=== PATIENT | female | born 1960 | race Hispanic/Latino ===

== ENCOUNTER 2019-03-07 14:41 | Emergency (ER) | payer SELFPAY ==
[~2019-03-07] VITALS: Ht 160 cm; Wt 89.8 kg
[2019-03-07] MEDS ORDERED: SODIUM CHLORIDE 0.9% 1000ML 1,000 ML IV SCH ×2 (14:45→16:30)
--- OUTSIDE RECORDS SUMMARY | 2019-03-07 14:46 | XMS REPORT | Clinical Summary ---
Author Author [facility] Organization [facility] Address Unknown Phone Unavailable Care Team Providers Care Scoop Filler Name Role Phone Fili Andre MD PCP Allergies Comments Active Allergy Reactions Severity Noted Date Aspirin Palpitations 03/04/2012 Medications End Date Status Medication Sig Dispensed Refills Start Date Active blood glucose Use as 1 Kit 0 meterIndications: Type 2 directed.. 7 diabetes mellitus with complication, with long-term current use of insulin Active blood glucose test check blood 100 Each 3 stripsIndications: Type 2 sugar 3 times 7 diabetes mellitus with daily. complication, with long-term current use of insulin Active lancets 28 cgeck blood 100 Each 3 gaugeIndications: Type 2 sugar 3 times 7 diabetes mellitus with daily. complication, with long-term current use of insulin Active INSULIN SYRINGE 1mL Use to inject 200 Each 6 30GX5/16" medication 2 8 syringe-needleIndications times daily. : Inadequately controlled Use a new diabetes mellitus syringe each time. Active insulin REGULAR 100 Twice daily 30 mL 3 unit/mL under skin 8 injectionIndications: if sugars Inadequately controlled 201-250 - diabetes mellitus Inject 4 units ; if sugars 251-300 - Inject 6 unit; if sugars 301-350 - Inject 8 units; If sugars 351-400 - inject 10 units. Active amitriptyline (ELAVIL) 25 Take 3 270 tablet 1 05/19/201 mg tabletIndications: tablets by 8 Recurrent major mouth nightly depressive disorder, in at bedtime as full remission needed for Sleep. Active DULoxetine (CYMBALTA) 60 Take 1 90 capsule 1 05/19/201 mg delayed release capsule by 8 capsuleIndications: mouth daily. Recurrent major depressive disorder, in full remission, Generalized anxiety disorder Active insulin NPH 100 unit/mL Inject 75 140 mL 1 injectionIndications: Units under 8 Inadequately controlled the skin 2 diabetes mellitus times daily (before meals). Active metFORMIN (GLUCOPHAGE) Take 1 tablet 180 tablet 1 1,000 mg by mouth 2 8 tabletIndications: Type times daily II or unspecified type (with meals). diabetes mellitus with neurological manifestations, not stated as uncontrolled(250.60) Active lisinopril (PRINIVIL) 10 Take 1 tablet 90 tablet 1 mg tablet by mouth 8 daily. Active metoprolol succinate Take 1 tablet 90 tablet 1 (TOPROL XL) 25 mg by mouth 9 extended release daily. tabletIndications: Essential hypertension Active gabapentin (NEURONTIN) Take 1 tablet 180 tablet 1 600 mg tabletIndications: by mouth 2 9 Diabetic polyneuropathy times daily. associated with diabetes mellitus due to underlying condition Active omeprazole (PRILOSEC) 20 Take 1 90 capsule 1 mg delayed release capsule by 9 capsuleIndications: mouth daily. Gastroesophageal reflux disease, esophagitis presence not specified Active benzonatate (TESSALON Take 1-2 30 capsule 0 PERLES) 100 mg capsules by 9 capsuleIndications: Viral mouth every 8 URI with cough hours as needed for cough. Active loratadine (CLARITIN) 10 Take 1 tablet 30 tablet 0 mg tabletIndications: by mouth 9 Viral URI with cough, daily. Nasal congestion Active fluticasone propionate Use 2 Sprays 16 g 0 (FLONASE ALLERGY RELIEF) in each 9 50 mcg/actuation nasal nostril sprayIndications: Viral daily. URI with cough, Nasal congestion 11/24/2017 Discontinued INSULIN SYRINGE 0.5mL Use to inject 200 Each 3 30GX5/16" (ULTRA COMFORT) medication 2 7 syringe-needleIndications times daily. : Type 2 diabetes Use a new mellitus with syringe each complication, with time. long-term current use of insulin 07/22/2018 Discontinued nystatin (MYCOSTATIN) Apply to 30 g 3 100,000 unit/gram affected area 7 ointment 2 times daily. 11/24/2017 Discontinued insulin 70/30 NPH - Inject 40 60 mL 3 REGULAR (HUMULIN 70/30, Units under 7 NOVOLIN 70/30) 100 the skin 2 unit/mL injection times daily (with meals). 03/20/2018 Discontinued gabapentin (NEURONTIN) Take 1 tablet 180 tablet 1 600 mg tabletIndications: by mouth 2 7 Diabetic polyneuropathy times daily. associated with diabetes mellitus due to underlying condition 11/24/2017 Discontinued lisinopril (PRINIVIL, Take 1 tablet 90 tablet 1 ZESTRIL) 20 mg by mouth 7 tabletIndications: daily. Essential hypertension 11/24/2017 Discontinued metoprolol succinate Take 2 180 tablet 1 (TOPROL XL) 50 mg tablets by 7 extended release mouth daily. tabletIndications: Essential hypertension 03/13/2018 Discontinued omeprazole (PRILOSEC) 20 Take 1 90 capsule 1 mg delayed release capsule by 7 capsuleIndications: mouth daily. Gastroesophageal reflux disease, esophagitis presence not specified 11/24/2017 Discontinued nitrofurantoin Take 1 20 capsule 0 (MACRODANTIN) 100 mg capsule 7 capsuleIndications: before Medication refill intercourse and 1 capsule after interocourse. 11/24/2017 Discontinued glyBURIDE micronized Take 2 180 tablet 1 (GLYNASE) 3 mg tablets by 8 tabletIndications: mouth daily Uncontrolled type 2 (with diabetes mellitus without breakfast). complication, with long-term current use of insulin 02/24/2018 Discontinued amitriptyline (ELAVIL) 25 Take 3 270 tablet 0 mg tabletIndications: tablets by 8 Recurrent major mouth nightly depressive disorder, in at bedtime as full remission needed for Sleep. 01/17/2018 Discontinued DULoxetine (CYMBALTA) 60 Take 1 90 capsule 0 mg delayed release capsule by 8 capsuleIndications: mouth daily. Recurrent major depressive disorder, in full remission, Generalized anxiety disorder 02/24/2018 Discontinued hydrOXYzine (ATARAX) 25 Take 1 tablet 90 tablet 0 mg tabletIndications: by mouth 8 Generalized anxiety daily as disorder needed for Anxiety. 01/02/2018 conjugated estrogens Insert 0.5 g 30 g 1 (PREMARIN) 0.625 mg/gram vaginally 3 8 vaginal creamIndications: times weekly Recurrent UTI for 30 days. 01/17/2018 Discontinued metFORMIN (GLUCOPHAGE) Take 1 tablet 180 tablet 0 1,000 mg by mouth 2 8 tabletIndications: Type times daily II or unspecified type (with meals). diabetes mellitus with neurological manifestations, not stated as uncontrolled(250.60) 01/17/2018 Discontinued lisinopril (PRINIVIL, Take 0.5 90 tablet 1 ZESTRIL) 20 mg tablets by 8 tabletIndications: mouth daily. Essential hypertension 02/25/2018 Discontinued metoprolol succinate Take 1 tablet 180 tablet 1 (TOPROL XL) 50 mg by mouth 8 extended release daily. tabletIndications: Essential hypertension 01/17/2018 Discontinued insulin NPH (NOVOLIN N, Inject 55 100 mL 3 HUMULIN N) 100 unit/mL Units under 8 injectionIndications: the skin 2 Inadequately controlled times daily diabetes mellitus (before meals). 03/16/2018 Discontinued insulin NPH 100 unit/mL Inject 65 120 mL 1 injectionIndications: Units under 8 Inadequately controlled the skin 2 diabetes mellitus times daily (before meals). 06/15/2018 Discontinued metFORMIN (GLUCOPHAGE) Take 1 tablet 180 tablet 1 1,000 mg by mouth 2 8 tabletIndications: Type times daily II or unspecified type (with meals). diabetes mellitus with neurological manifestations, not stated as uncontrolled(250.60) 06/15/2018 Discontinued lisinopril (PRINIVIL) 10 Take 1 tablet 90 tablet 1 mg tablet by mouth 8 daily. 02/24/2018 Discontinued DULoxetine (CYMBALTA) 60 Take 1 90 capsule 0 mg delayed release capsule by 8 capsuleIndications: mouth daily. Recurrent major depressive disorder, in full remission, Generalized anxiety disorder 02/22/2018 nitrofurantoin Take 1 28 capsule 0 (MACRODANTIN) 100 mg capsule by 8 capsuleIndications: mouth 4 times Urinary tract infection daily for 7 without hematuria, site days. unspecified 05/19/2018 Discontinued amitriptyline (ELAVIL) 25 Take 3 270 tablet 0 mg tabletIndications: tablets by 8 Recurrent major mouth nightly depressive disorder, in at bedtime as full remission needed for Sleep. 05/19/2018 Discontinued DULoxetine (CYMBALTA) 60 Take 1 90 capsule 0 mg delayed release capsule by 8 capsuleIndications: mouth daily. Recurrent major depressive disorder, in full remission, Generalized anxiety disorder 08/04/2018 Discontinued metoprolol succinate Take 1 tablet 90 tablet 1 (TOPROL XL) 25 mg by mouth 8 extended release daily. tabletIndications: Essential hypertension 10/04/2018 Discontinued omeprazole (PRILOSEC) 20 Take 1 90 capsule 1 mg delayed release capsule by 8 capsuleIndications: mouth daily. Gastroesophageal reflux disease, esophagitis presence not specified 06/15/2018 Discontinued insulin NPH 100 unit/mL Inject 70 130 mL 1 injectionIndications: Units under 8 Inadequately controlled the skin 2 diabetes mellitus times daily (before meals). 08/04/2018 Discontinued gabapentin (NEURONTIN) Take 1 tablet 180 tablet 1 600 mg tabletIndications: by mouth 2 8 Diabetic polyneuropathy times daily. associated with diabetes mellitus due to underlying condition 04/07/2018 mupirocin (BACTROBAN) 2 % Apply to 22 g 0 ointmentIndications: Open affected area 8 wound 3 times daily for 7 days. 10/04/2018 Discontinued linagliptin (TRADJENTA) 5 Take 1 tablet 30 tablet 1 mg tablet by mouth 9 daily. 10/17/2018 nitrofurantoin Take 1 40 capsule 0 (MACRODANTIN) 100 mg capsule by 9 capsuleIndications: Acute mouth 4 times UTI (urinary tract daily for 10 infection) days. Active Problems Problem Noted Date Inadequately controlled diabetes mellitus 02/14/2018 History of pancreatitis - see records from OSH in media in 12/201605/20/2017 Bilateral renal cysts 04/06/2017 Type II or unspecified type diabetes mellitus without mention of 01/06/2013 complication, not stated as uncontrolled Diabetic polyneuropathy 11/28/2012 Calcaneal spur 10/03/2012 Other and unspecified hyperlipidemia 10/03/2012 GERD (gastroesophageal reflux disease) 10/03/2012 Gingivitis 08/12/2012 Major depression 05/27/2012 Generalized anxiety disorder 05/27/2012 Diabetic neuropathy 04/29/2012 HTN (hypertension) 03/04/2012 Ventral hernia Encounters Care Team Description Date Type Specialty 11/24/2018 Travel 11/02/2018 Travel Carmelita Dasilva NP Viral URI with cough (Primary Dx); Nasal congestion 10/31/2018 Same Day Family Practice 10/31/2018 Travel Ai Austin PA Acute UTI (urinary tract infection) (Primary Dx); Dysuria; DM (diabetes mellitus), secondary 10/07/2018 Office Visit Family Practice Fili Andre MD Cantieri, Tara Lynn, RPH Inadequately controlled diabetes mellitus (Primary Dx); Hyperlipidemia, unspecified hyperlipidemia type 10/04/2018 Office Visit Clinical Pharmacy Fili Andre MD Gastroesophageal reflux disease, esophagitis presence not specified 10/04/2018 Refill [facility] Lindsey Malik DPM Diabetes mellitus type 2 with neurological manifestations (Primary Dx); Closed displaced fracture of second metatarsal bone of left foot with delayed healing, subsequent encounter; Hallux valgus, left 09/30/2018 Office Visit Podiatry Fili Andre MD Closed displaced fracture of second metatarsal bone of left foot with delayed healing, subsequent encounter 09/30/2018 Ancillary Radiology Procedure 09/30/2018 Travel Fili Andre MD Hearing problem, unspecified laterality (Primary Dx) 09/14/2018 Orders Only [facility] Verónica Ordaz RN Information Only 09/14/2018 Telephone [facility] Dilip Godoy MD Left foot pain 09/06/2018 Orders Only Orthopedics Fili Andre MD Left foot pain 09/05/2018 Hospital Radiology Encounter Sotero Larsen MD Mascarenhas, Randhir F, MD Hallux valgus, left (Primary Dx); Left foot pain 09/05/2018 Office Visit Orthopedics 09/05/2018 Travel Lindsey Malik DPM Diabetes mellitus type 2 with neurological manifestations (Primary Dx); Closed displaced fracture of second metatarsal bone of left foot with delayed healing, subsequent encounter; Hallux valgus, left 08/05/2018 Office Visit Podiatry Lindsey Malik DPM 08/04/2018 Ancillary Radiology Procedure Lurdes Edward RPH Inadequately controlled diabetes mellitus (Primary Dx); Essential hypertension; Diabetic polyneuropathy associated with diabetes mellitus due to underlying condition 08/04/2018 Office Visit Clinical Pharmacy Fili Andre MD Results 08/04/2018 Telephone [facility] Fili Andre MD Follow up (Primary Dx) 08/04/2018 Orders Only [facility] 08/04/2018 Travel Fili Andre MD Results 08/03/2018 Telephone [facility] Fili Andre MD Results 07/24/2018 Telephone [facility] Fili Andre MD Hernia of abdominal wall (Primary Dx); Influenza vaccination declined by patient; Type 2 diabetes mellitus without complication, with long-term current use of insulin; Left foot pain; Fatty liver; Physical exam, annual 07/22/2018 Office Visit [facility] 07/20/2018 Travel Lurdes Edward RPH Inadequately controlled diabetes mellitus; Type II or unspecified type diabetes mellitus with neurological manifestations, not stated as uncontrolled(250.60) 06/15/2018 Office Visit Clinical Pharmacy Lindsey Malik DPM 06/10/2018 Ancillary Radiology Procedure Lindsey Malik DPM Closed displaced fracture of second metatarsal bone of left foot, initial encounter (Primary Dx); Diabetes mellitus type 2 with neurological manifestations; Hallux valgus, left 06/10/2018 Office Visit Podiatry Boo Schroeder MD Recurrent major depressive disorder, in full remission; Generalized anxiety disorder 05/19/2018 Office Visit Psychiatry Lurdes Edward RPH Inadequately controlled diabetes mellitus (Primary Dx) 05/11/2018 Office Visit Clinical Pharmacy Fili Andre MD Pcp Communication (response to email ) 05/09/2018 Telephone [facility] Fili Andre MD 04/25/2018 Hospital Cardiology Encounter 04/01/2018 Ancillary Radiology Procedure Fili Andre MD 03/31/2018 Ancillary Radiology Procedure Fili Andre MD Palpitation (Primary Dx); Callus; Open wound; Bunion; Left foot pain 03/24/2018 Office Visit Family Practice Fili Andre MD Diabetic polyneuropathy associated with diabetes mellitus due to underlying condition 03/20/2018 Refill [facility] Lurdes Edward RPH Inadequately controlled diabetes mellitus 03/16/2018 Office Visit Clinical Pharmacy Fili Andre MD Gastroesophageal reflux disease, esophagitis presence not specified 03/13/2018 Refill [facility] Lurdes Edward RPH Inadequately controlled diabetes mellitus 03/08/2018 Orders Only Clinical Pharmacy Fili Andre MD Type 2 diabetes mellitus without complication, with long-term current use of insulin (Primary Dx); Essential hypertension; Elevated LFTs 02/25/2018 Office Visit Family Practice Fili Andre MD Livingston, Robin K, MD Recurrent major depressive disorder, in full remission (Primary Dx); Generalized anxiety disorder 02/24/2018 Office Visit Psychiatry Carmelita Dasilva, GENE Urinary tract infection without hematuria, site unspecified (Primary Dx); Dysuria 02/15/2018 Same Day Family Practice Lurdes Edward [facility] GiselPaz Inadequately controlled diabetes mellitus (Primary Dx) 02/14/2018 Office Visit Clinical Pharmacy Lurdes Edward [facility] Inadequately controlled diabetes mellitus; Type II or unspecified type diabetes mellitus with neurological manifestations, not stated as uncontrolled(250.60) 01/17/2018 Office Visit Clinical Pharmacy Boo Schroeder MD Recurrent major depressive disorder, in full remission; Generalized anxiety disorder 01/17/2018 Refill Psychiatry Silvana Crain Diabetes; Pre-clinic Chart Review 11/26/2017 Telephone Social Work Benoit Gamez MD Inadequately controlled diabetes mellitus (Primary Dx); Elevated LFTs; Fatty liver; Low blood pressure reading; Essential hypertension; Alopecia 11/24/2017 Office Visit Family Practice Benoit Gamez MD Inadequately controlled diabetes mellitus 11/24/2017 Orders Only Family Practice Anirudh Navarrete RN 11/24/2017 Patient Patient Education Education after 11/23/2017 Immunizations Name Dates Previously Given Next Due Herpes Zoster Vaccine In 05/06/2017 Clinic Influenza Vaccine, 09/16/2017 (Deferred: Patient Refused) Seasonal, Injectable Influenza, 07/22/2018 (Deferred: Patient Refused) Vaccine<FLUCELVAX>(Multi- Dose) Pneumoccoccal 03/04/2012 Pneumococcal 13-valent 09/03/2016 conj 0.5 mL injection Tdap Tetanus, diphtheria, 03/04/2012 acellular pertussis Vaccine Triamcinolone 40mg/ml Inj 04/03/2013 Family History Medical History Relation Name Comments Asthma Brother Psychiatry Brother Heart Father Arthritis Mother Diabetes Mother Hypertension Mother Cancer Sister Thyroid Diabetes Sister Hypertension Sister Stroke Sister Relation Name Status Comments Brother Alive Brother Brother Father Alive Maternal Grandfather Maternal Grandmother Mother Paternal Grandfather Paternal Grandmother Sister Alive Sister Sister Sister Sister Social History Date Tobacco Use Types Packs/Day Years Used Never Smoker Smokeless Tobacco: Never Used Tobacco Cessation: Counseling Given: No Alcohol Use Drinks/Week oz/Week Comments No Sex Assigned at Date Recorded Not on file Industry Job Start Date Occupation Not on file Not on file Not on file Travel End Travel History Travel Start No recent travel history available. Last Filed Vital Signs Time Taken Vital Sign Reading 10/31/2018 8:38 AM CDT Blood Pressure 103/47 10/31/2018 8:38 AM CDT Pulse 87 10/31/2018 8:38 AM CDT Temperature 36.8 C (98.3 F) 10/31/2018 8:38 AM CDT Respiratory Rate 18 10/31/2018 8:38 AM CDT Oxygen Saturation 99% - Inhaled Oxygen - Concentration 10/31/2018 8:38 AM CDT Weight 88 kg (194 lb) 10/31/2018 8:38 AM CDT Height 162.6 cm (5' 4") 10/31/2018 8:38 AM CDT Body Mass Index 33.3 Plan of Treatment Care Team Description Date Type Specialty Lurdes Edward, [facility] [address] [place] [address] [phone] Arrived 11/24/2018 Office Visit Clinical Pharmacy Boo Schroeder MD [address] [facility] [id number] [place] [address] [phone] 12/22/2018 Office Visit Psychiatry Health Maintenance Due Date Last Done Comments DM Retinal Exam (Yearly) 10/20/2018 10/20/2017, 10/21/2016, 12/22/2012 Breast Cancer Scrn 11/15/2018 11/15/2017, 10/20/2016, 04/29/2012 (Yearly) Colorectal Cancer Scrn 03/16/2019 03/16/2018, 09/29/2016 Annual (FIT/FOBT) Age 50 to 75 IMM Influenza Seasonal 04/25/2019 03/31/2012 (Declined) Apr to September (>/=19 yrs) Cervical Cancer Scrn (3 10/01/2019 09/30/2016, 05/26/2012 (Previously Yrs) completed - External) DM Foot Exam (Yearly) 10/08/2019 10/07/2018, 06/10/2018, 11/01/2017, Additional history exists DM HGBA1C (Yearly) 11/05/2019 11/04/2018, 07/22/2018, 06/10/2018, Additional history exists Goals Goal Patient Associated Recent Progress Patient-Stat Author Goal Type Problems ed? LOWER BLOOD GLUCOSE Lifestyle No Reinaldo Love Increase Physical Activity Lifestyle No Anirudh Navarrete RN Weight (lb) < 200 lb (90.7 kg) Weight 88 kg (194 lb) No Carine Ohara (10/31/2018 8:38 AM J CDT) Procedures Comments Procedure Name Priority Date/Time Associated Diagnosis LIPID PROFILE Routine 11/04/2018 Hyperlipidemia, 8:47 AM CDT unspecified hyperlipidemia type COMPREHENSIVE METABOLIC Routine 11/04/2018 Inadequately controlled PANEL(DBIL NOT INCLUDED) 8:47 AM CDT diabetes mellitus HEMOGLOBIN A1C Routine 11/04/2018 Inadequately controlled 8:47 AM CDT diabetes mellitus DIABETIC FOOT EXAM Routine 10/07/2018 DM (diabetes mellitus), 10:47 AM CDT secondary URINE CULTURE Routine 10/07/2018 Dysuria 10:21 AM CDT POC URINE DIPSTICK, Routine 10/07/2018 Dysuria WITHOUT MICRO XRAY FOOT 3 VIEWS MIN Routine 09/30/2018 Closed displaced fracture 8:10 AM COMMUNITY SERVICE REPRESENTATIVE of second metatarsal bone of left foot with delayed healing, subsequent encounter XRAY FOOT 3 VIEWS MIN Routine 09/05/2018 Left foot pain 8:35 AM COMMUNITY SERVICE REPRESENTATIVE XRAY FOOT 3 VIEWS MIN Routine 08/04/2018 Follow up 8:46 AM COMMUNITY SERVICE REPRESENTATIVE LIVER PROFILE Routine 08/04/2018 Elevated LFTs 8:05 AM COMMUNITY SERVICE REPRESENTATIVE HEPATITIS PANEL Routine 08/04/2018 Elevated LFTs 8:05 AM COMMUNITY SERVICE REPRESENTATIVE COMPREHENSIVE METABOLIC Routine 07/22/2018 Fatty liver PANEL(DBIL NOT INCLUDED) 3:40 PM COMMUNITY SERVICE REPRESENTATIVE VIT D, 25-HYDROXY Routine 07/22/2018 Left foot pain 3:40 PM COMMUNITY SERVICE REPRESENTATIVE HEMOGLOBIN A1C Routine 07/22/2018 Type 2 diabetes mellitus 3:40 PM COMMUNITY SERVICE REPRESENTATIVE without complication, with long-term current use of insulin XRAY FOOT 3 VIEWS MIN STAT 06/10/2018 Closed displaced fracture 11:04 AM COMMUNITY SERVICE REPRESENTATIVE of second metatarsal bone of left foot, initial encounter DIABETIC FOOT EXAM Routine 06/10/2018 Diabetes mellitus type 2 10:18 AM COMMUNITY SERVICE REPRESENTATIVE with neurological manifestations HEMOGLOBIN A1C Routine 06/10/2018 Inadequately controlled 10:02 AM COMMUNITY SERVICE REPRESENTATIVE diabetes mellitus 24 HOUR HOLTER MONITOR Routine 04/25/2018 Palpitation 10:01 AM CDT U/S ABDOMEN Routine 04/01/2018 Elevated LFTs 8:05 AM CDT XRAY FOOT 3 VIEWS MIN Routine 03/31/2018 Callus 8:21 AM CDT Open wound Bunion Left foot pain FREE T4 Routine 03/31/2018 Palpitation 8:13 AM CDT TSH Routine 03/31/2018 Palpitation 8:13 AM CDT 12 LEAD EKG Routine 03/24/2018 Palpitation 3:54 PM CDT OCCULT BLOOD ICT Routine 03/16/2018 Essential hypertension 11:56 AM CDT Type 2 diabetes mellitus without complication, with long-term current use of insulin Elevated LFTs HEMOGLOBIN A1C Routine 03/08/2018 Inadequately controlled 3:48 PM CDT diabetes mellitus COMPREHENSIVE METABOLIC Routine 03/08/2018 Inadequately controlled PANEL(DBIL NOT INCLUDED) 3:48 PM CDT diabetes mellitus MICROALBUM, URINE Routine 03/08/2018 Inadequately controlled 3:44 PM CDT diabetes mellitus URINE CULTURE Routine 02/15/2018 Urinary tract infection 5:23 PM CDT without hematuria, site unspecified POC URINE DIPSTICK, Routine 02/15/2018 Dysuria WITHOUT MICRO 4:50 PM CDT FERRITIN Routine 11/24/2017 Alopecia 11:42 AM CDT CBC/DIFF Routine 11/24/2017 Alopecia 11:42 AM CDT TSH Routine 11/24/2017 Alopecia 11:42 AM CDT after 11/23/2017 Results * HEMOGLOBIN A1C (11/04/2018 8:47 AM CDT) Only the most recent of 4 results within the time period is included. Hemoglobin A1c 8.3 (H) 4.3 - 6.1 % [facility] IMMUNOLOGY Est Average 191.5 mg/dL [facility] Gluc IMMUNOLOGY Specimen Blood Performing Organization Address City/State/Zipcode Phone Number [facility]MMUNOLOG[facility] * COMPREHENSIVE METABOLIC PANEL(DBIL NOT INCLUDED) (11/04/2018 8:47 AM CDT) Only the most recent of 3 results within the time period is included. Albumin 3.9 3.7 - 5.3 g/dL [facility] Calcium 9.5 8.6 - 10.3 mg/dL [facility] CO2 30 21 - 31 mmol/L [facility] 1 Chloride 99 98 - 107 mmol/L [facility] 1 Creatinine 0.70 0.6 - 1.2 mg/dL [facility] 1 Glucose 82 70 - 110 mg/dL [facility] 1 Alk Phos 68 34 - 104 U/L [facility] 1 Potassium 4.5 3.5 - 5.1 mmol/L [facility] 1 Sodium 138 136 - 145 mmol/L [facility] 1 ALT 49 7 - 52 U/L [facility] 1 AST 47 (H) 13 - 39 U/L [facility] 1 Urea Nitrogen 12 7 - 25 mg/dL [facility] 1 T Bilirubin 0.3 0.2 - 1.2 mg/dL [facility] 1 T Protein 7.2 6.0 - 8.3 g/dL [facility] 1 GFR, Estimated >60 mL/min/1.73 m2 [facility] 1 GFR, Estim, >60 mL/min/1.73 m2 [facility] Afr-Am 1 Anion Gap 9 [facility] 1 Specimen Blood Performing Organization Address [facility] [place] [facility] Phone Number [facility] * LIPID PROFILE (11/04/2018 8:47 AM CDT) Cholesterol 186 mg/dL [facility] Comment: 1 REFERENCE RANGE: Desirable: <200 mg/dL Borderline: 200-240 mg/dL High Risk: >240 mg/dL Triglyceride 135 <150 mg/dL [facility] Comment: 1 REFERENCE RANGE: Normal: <150 mg/dL Borderline High: 150-199 mg/dL High: 200-499 mg/dL Very High: >ga=596 mg/dL HDL 44 mg/dL [facility] Comment: 1 Increased CHD risk: <40 mg/dL Decreased CHD risk: >60 mg/dL LDL 115 mg/dL [facility] Comment: 1 REFERENCE RANGE: Optimal: <100 mg/dL Near Optimal: 100-129 mg/dL Borderline High: 130-159 mg/dL High: 160-189 mg/dL Very High: >kf=998 mg/dL Specimen Blood Performing Organization Address [facility] [place] Phone Number [facility] * DIABETIC FOOT EXAM (10/07/2018 10:47 AM CDT) Only the most recent of 2 results within the time period is included. Narrative Performed At [facility] 10/07/2018 10:55 AM Diabetic Foot Exam was performed at 10/07/2018 10:47 AM.Right foot sensation is normal, right foot pulses are normal, right foot appearance is abnormal.Left foot sensation is normal,left foot pulses are normal, left foot appearance is abnormal. * URINE CULTURE (10/07/2018 10:21 AM CDT) Only the most recent of 2 results within the time period is included. Spec Urine BT MICROBIOLOGY Description Order Comments None BT MICROBIOLOGY Culture >100,000 colonist/ml BT MICROBIOLOGY Streptococcus beta hemolytic, group B Report Status Final 10/08/2018 BT MICROBIOLOGY Specimen Urine - URINE Performing Organization Address City/State/Zipcode Phone Number RAD[facility] BT MICROBIOLOGY * POC URINE DIPSTICK, WITHOUT MICRO (10/07/2018) Only the most recent of 2 results within the time period is included. Color POC mi - - - Clarity POC cloudy - - - Spec [place] 1.020 1.005 - 1.030 POC pH POC 6.0 5.0 - 7.0 Protein POC 3+ Neg - Neg Glucose POC 2+ Neg - Neg Ketone POC 1+ Neg - Neg Bilirubin POC 1+ Neg - Neg Nitrate POC Pos Neg - Neg Urobilinogen 4.0 (A) 0.2 - 1.0 EU/dL POC Leukocyte POC 3+ Neg - Neg Blood POC 1+ Neg - Neg Specimen Urine * XRAY FOOT 3 VIEWS MIN (09/30/2018 8:10 AM COMMUNITY SERVICE REPRESENTATIVE) Only the most recent of 5 results within the time period is included. Impressions Performed At IMPRESSION: SMS 1.Progressed but incomplete healing of oblique mildly displaced fracture of second metatarsal distal diaphysis. Unchanged surrounding callus formation. No change in alignment. 2.Unchanged moderate to severe hallux valgus. Dictated By: Donald Lau DO, 09/30/2018 9:17 AM I have reviewed the study and agree with the findings in this report. Signed By: John Evans DO, 09/30/2018 9:24 AM Narrative Performed At Left foot x-rays - 3 view(s) SMS HISTORY:f/u 8 week xray left foot 2nd met COMPARISON: Left foot x-rays to 06/14/2019 DISCUSSION: None. Procedure Note Interface, Rad/Mammog In - 09/30/2018 9:29 AM COMMUNITY SERVICE REPRESENTATIVE Left foot x-rays - 3 view(s) HISTORY: f/u 8 week xray left foot 2nd met COMPARISON: Left foot x-rays to 06/14/2019 DISCUSSION: None. IMPRESSION IMPRESSION: 1. Progressed but incomplete healing of oblique mildly displaced fracture of second metatarsal distal diaphysis. Unchanged surrounding callus formation. No change in alignment. 2. Unchanged moderate to severe hallux valgus. Dictated By: Donald Lau DO, 09/30/2018 9:17 AM I have reviewed the study and agree with the findings in this report. Signed By: John Evans DO, 09/30/2018 9:24 AM Performing Organization Address City/[facility] Phone Number [facility] * LIVER PROFILE (08/04/2018 8:05 AM COMMUNITY SERVICE REPRESENTATIVE) T Protein 7.0 6.0 - 8.3 g/dL BT MAIN-STATION 1 Albumin 4.1 3.7 - 5.3 g/dL BT MAIN-STATION 1 T Bilirubin 0.3 0.2 - 1.2 mg/dL BT MAIN-STATION 1 Alk Phos 60 34 - 104 U/L BT MAIN-STATION 1 AST 44 (H) 13 - 39 U/L BT MAIN-STATION 1 ALT 53 (H) 7 - 52 U/L BT MAIN-STATION 1 D Bilirubin <0.0 (L) 0.0 - 0.2 mg/dL BT MAIN-STATION 1 Specimen Blood Performing Organization Address [facility] Phone Number MISYS BT MAIN-STATION 1 * HEPATITIS PANEL (08/04/2018 8:05 AM COMMUNITY SERVICE REPRESENTATIVE) HCV IgG Negative NEG BT MAIN-STATION 3 HBsAg Negative NEG BT MAIN-STATION 3 HAV, IgM Negative NEG BT MAIN-STATION 3 HBcAb, IgM Negative NEG BT MAIN-STATION 3 Specimen Blood Performing Organization Address [facility] Phone Number MISYS BT MAIN-STATION 3 * VIT D, 25-HYDROXY (07/22/2018 3:40 PM COMMUNITY SERVICE REPRESENTATIVE) Vit D, 19.7 (L) 30 - 100 ng/mL BT DIAGNOSTIC 25-Hydroxy Comment: IMMUNOLOGY Vitamin D deficiency has been defined by the [place] of [employer] and Endocrine Society guideline as a level of serum 25-OH Vitamin D less than 20 ng/mL. The Endocrine Society further defines Vitamin D insufficiency as a level between 21 and 29 ng/mL and sufficiency as a level between 30 and 100 ng/mL. Performing Organization Address City/[facility] Phone Number [facility] BT DIAGNOSTIC IMMUNOLOGY * 24 HOUR HOLTER MONITOR (04/25/2018 10:01 AM CDT) 24 HOUR HOLTER SMS MONITOR [facility] Test Date:2018-04-25 Pat Name: GISELLE LANDAVERDE Department: Room: Gender: F Digital Court Reporter: ASHLEY JOYCE :[id number] Requested By: Order Number: [id number] sobia ZIEGLER: Lexy Kessler M.D. Interpretive Statements PREDOMINANT RHYTHM: SINUS HR RANGE: 56-129 BPM LONGEST R-R INTERVAL: 1.2 SEC (4:34 AM) NO PACS NO PVCS NO ISCHEMIC CHANGES Electronically Signed On 04-27-18 14:28:49 CDT by Lexy Kessler M.D. Performing Organization Address City/State/Zipcode Phone Number SMS * U/S ABDOMEN (04/01/2018 8:05 AM CDT) Impressions Performed At IMPRESSION: SMS Hepatomegaly with hepatic steatosis. Dictated By: Cali Vazquez DO, 04/01/2018 8:35 AM I have reviewed the study and agree with the findings in this report. Signed By: Hiren Lopez MD, 04/01/2018 9:05 AM Narrative Performed At EXAM: Complete Abdominal Ultrasound SMS INDICATION: elevated lft COMPARISON: Renal ultrasound 10/19/2017, abdominal ultrasound 05/10/2012. TECHNIQUE: Transverse and longitudinal images of the upper abdomen were obtained. FINDINGS: Liver: Size: 16.7 cm in the right midclavicular line, normal Appearance: Increased echogenicity, smooth contour Mass: No focal masses Spleen: Size: 10.3 cm in length, normal Echogenicity: Normal Mass: No focal masses Gallbladder: Status post cholecystectomy. Bile Ducts: Intrahepatic Ducts: No dilatation Extrahepatic Ducts: Common bile duct measures 0.5 cm, no dilatation Pancreas: Visualized portions of the pancreatic neck is normal. Right Kidney: Size:10.7 cm Echogenicity:Normal Parenchymal thickness: Normal Collecting System:No hydronephrosis Stone:None Cyst/Mass: None Left Kidney: Size:10.1 cm Echogenicity:Normal Parenchymal thickness: Normal Collecting System:No hydronephrosis Stone:None Cyst/Mass: 2 simple cysts measuring 1 x 1 x 1 cm within the interpolar region and 1.7 x 1.3 x 1.3 cm within the superior pole, stable in size given differences in technique. Vessels: Aorta: Visualized portions are normal Inferior Vena Cava: Visualized portions are normal Main Portal Vein: 1.2 cm, normal size with hepatopetal flow. Free Fluid: No ascites or pleural effusion Soft tissue: Fat-containing hernia within the right mid to lower quadrant. Procedure Note Interface, Rad/Mammog In - 04/01/2018 9:10 AM CDT EXAM: Complete Abdominal Ultrasound INDICATION: elevated lft COMPARISON: Renal ultrasound 10/19/2017, abdominal ultrasound 05/10/2012. TECHNIQUE: Transverse and longitudinal images of the upper abdomen were obtained. FINDINGS: Liver: Size: 16.7 cm in the right midclavicular line, normal Appearance: Increased echogenicity, smooth contour Mass: No focal masses Spleen: Size: 10.3 cm in length, normal Echogenicity: Normal Mass: No focal masses Gallbladder: Status post cholecystectomy. Bile Ducts: Intrahepatic Ducts: No dilatation Extrahepatic Ducts: Common bile duct measures 0.5 cm, no dilatation Pancreas: Visualized portions of the pancreatic neck is normal. Right Kidney: Size: 10.7 cm Echogenicity: Normal Parenchymal thickness: Normal Collecting System: No hydronephrosis Stone: None Cyst/Mass: None Left Kidney: Size: 10.1 cm Echogenicity: Normal Parenchymal thickness: Normal Collecting System: No hydronephrosis Stone: None Cyst/Mass: 2 simple cysts measuring 1 x 1 x 1 cm within the interpolar region and 1.7 x 1.3 x 1.3 cm within the superior pole, stable in size given differences in technique. Vessels: Aorta: Visualized portions are normal Inferior Vena Cava: Visualized portions are normal Main Portal Vein: 1.2 cm, normal size with hepatopetal flow. Free Fluid: No ascites or pleural effusion Soft tissue: Fat-containing hernia within the right mid to lower quadrant. IMPRESSION IMPRESSION: Hepatomegaly with hepatic steatosis. Dictated By: Cali Vazquez DO, 04/01/2018 8:35 AM I have reviewed the study and agree with the findings in this report. Signed By: Hiren Lopez MD, 04/01/2018 9:05 AM Performing Organization Address [facility] Phone Number SMS * TSH (03/31/2018 8:13 AM CDT) Only the most recent of 2 results within the time period is included. TSH 1.47 0.57 - 3.74 uIU/mL BT MAIN-STATION 1 Specimen Blood Performing Organization Address [facility] Phone Number MISYS BT MAIN-STATION 1 * FREE T4 (03/31/2018 8:13 AM CDT) Free T4 0.69 0.61 - 1.18 ng/dl BT MAIN-STATION Comment: 1 females: 1st Trimester-0.52-1.10 ng/dL 2nd Trimester=0.45-0.99 ng/dL 3rd Trimester=0.48-0.95 ng/dL Specimen Blood Performing Organization Address [facility] Phone Number MISYS BT MAIN-STATION 1 * 12 LEAD EKG (03/24/2018 3:54 PM CDT) 12 LEAD EKG FOR [facility] Test Date:2018-03-24 Pat Name: GISELLE LANDAVERDE Department: Room: Gender: F Digital Court Reporter: [id number] :[id number] 0 Requested By: Order Number: Wan ramsay MD: Hailey Flowers Measurements Intervals [place] Rate: 73 P:44 [place]: 145 QRS: 55 QRSD: 96 T:38 QT: 364 QTc:401 Interpretive Statements SINUS RHYTHM Electronically Signed On 03-24-18 17:37:01 CDT by Hailey Flowers Performing Organization Address [facility] Phone Number [facility] * OCCULT BLOOD ICT (03/16/2018 11:56 AM CDT) Occult Blood Negative NEG [facility] ICT Specimen Stool Performing Organization Address [facility] Phone Number [facility] * MICROALBUM, URINE (03/08/2018 3:44 PM CDT) Microalbum, 1.8 0.0 - 29.0 mg/dL BT MAIN-STATION Random 1 Creatinine, Ur 40.6 20 - 320 mg/dL BT MAIN-STATION 1 Urine 44.3 (H) 0 - 29 mg/g UCR BT MAIN-STATION Microalbumin Comment: 1 To minimize intra-individual variation, analysis of three random urine samples collected over the course of a week is recommended. Performing Organization Address [facility] Phone Number MISYS BT MAIN-STATION 1 * FERRITIN (11/24/2017 11:42 AM CDT) Ferritin 24.20 11.0 - 306.8 ng/mL BT MAIN-STATION 1 Specimen Blood Performing Organization Address [facility] Phone Number MISYS BT MAIN-STATION 1 * CBC/DIFF (11/24/2017 11:42 AM CDT) WBC 8.6 4.5 - 11.0 K/uL BT MAIN-STATION 2 RBC 4.21 4.20 - 5.40 M/uL BT MAIN-STATION 2 Hemoglobin 12.5 12.0 - 16.0 g/dL BT MAIN-STATION 2 Hematocrit 38.6 37.0 - 47.0 % BT MAIN-STATION 2 MCV 92 82 - 92 fL BT MAIN-STATION 2 MCH 29.7 27.0 - 32.0 pg BT MAIN-STATION 2 MCHC 32.4 32.0 - 36.0 g/dL BT MAIN-STATION 2 RDW 45.8 36.4 - 46.3 fL BT MAIN-STATION 2 Platelet 248 150 - 400 K/uL BT MAIN-STATION 2 Mean Platelet 11.6 9.4 - 12.4 fL BT MAIN-STATION Volume 2 Percent NRBC 0.0 BT MAIN-STATION 2 Absolute NRBC 0.00 BT MAIN-STATION 2 Neutrophil 38.5 34.0 - 70.0 % BT MAIN-STATION 2 Lymphocyte 53.1 (H) 20.0 - 50.0 % BT MAIN-STATION 2 Monocyte 4.9 (L) 5.0 - 12.0 % BT MAIN-STATION 2 Eosinophil 2.7 0.7 - 5.0 % BT MAIN-STATION 2 Basophil 0.6 0.1 - 1.2 % BT MAIN-STATION 2 Pct Immat Gran 0.2 0.0 - 0.5 BT MAIN-STATION 2 Neutrophil, Abs 3.29 1.56 - 6.13 K/uL BT MAIN-STATION 2 Lymphocyte, Abs 4.54 (H) 1.18 - 3.74 K/uL BT MAIN-STATION 2 Monocyte, Abs 0.42 (H) 0.24 - 0.36 K/uL BT MAIN-STATION 2 Eosinophil, Abs 0.23 0.04 - 0.36 K/uL BT MAIN-STATION 2 Basophil, Abs 0.05 0.01 - 0.08 K/uL BT MAIN-STATION 2 Absol Immat 0.02 0.00 - 0.03 K/uL BT MAIN-STATION Gran 2 Specimen Blood Performing Organization Address City/State/Zipcode Phone Number MISYS BT MAIN-STATION 2 after 11/23/2017 Insurance Type Payer Benefit Subscriber ID Effective Phone Address Plan / Dates Group [facility] xxxxxx 2018- [phone] [address] [employer] 2019 [id number] [place], [place] [id number] [employer] PLAN [employer] PLAN xxxxxx 2018- [phone] [id number] [id number] [place] [address]
--- OUTSIDE RECORDS SUMMARY | 2019-03-07 14:46 | XMS REPORT | Continuity of Care Document ---
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 Name Role Phone [email or web address] Unavailable Unavailable Problems Problem Status Onset Date Classification Date Reported Comments Source Inadequately controlled diabetes mellitus Active 02/14/2018 03/02/2019 [facility] History of pancreatitis - see records from OSH in media in 12/2016 Active 05/20/2017 03/02/2019 [facility] Bilateral renal cysts Active 04/06/2017 03/02/2019 [facility] Type II or unspecified type diabetes mellitus without mention of complication, not stated as uncontrolled Active 01/06/2013 03/02/2019 [facility] Diabetic polyneuropathy Active 11/28/2012 03/02/2019 [facility] Calcaneal spur Active 10/03/2012 03/02/2019 [facility] Other and unspecified hyperlipidemia Active 10/03/2012 03/02/2019 [facility] GERD Active 10/03/2012 03/02/2019 [facility] Gingivitis Active 08/12/2012 03/02/2019 [facility] Major depression Active 05/27/2012 03/02/2019 [facility] Generalized anxiety disorder Active 05/27/2012 03/02/2019 [facility] Diabetic neuropathy Active 04/29/2012 03/02/2019 [facility] HTN Active 03/04/2012 03/02/2019 [facility] Ventral hernia Active 03/02/2019 [facility] Essential hypertension Active 03/02/2019 [facility] Gastroesophageal reflux disease, esophagitis presence not specified Active 03/02/2019 [facility] Diabetic polyneuropathy associated with diabetes mellitus due to underlying condition Active 03/02/2019 [facility] Recurrent major depressive disorder, in full remission Active 03/02/2019 [facility] Type II or unspecified type diabetes mellitus with neurological manifestations, not stated as uncontrolled Active 03/02/2019 [facility] Viral URI with cough Active 03/02/2019 [facility] Nasal congestion Active 03/02/2019 [facility] Dysuria Active 03/02/2019 [facility] Acute UTI Active 03/02/2019 [facility] DM , secondary Active 03/02/2019 [facility] Hyperlipidemia, unspecified hyperlipidemia type Active 03/02/2019 [facility] Diabetes mellitus type 2 with neurological manifestations Active 03/02/2019 [facility] Closed displaced fracture of second metatarsal bone of left foot with delayed healing, subsequent encounter Active 03/02/2019 [facility] Hallux valgus, left Active 03/02/2019 [facility] Left foot pain Active 03/02/2019 [facility] Chronic fracture Active 03/02/2019 [facility] Follow up Active 03/02/2019 [facility] Elevated LFTs Active 03/02/2019 [facility] Hernia of abdominal wall Active 03/02/2019 [facility] Type 2 diabetes mellitus without complication, with long-term current use of insulin Active 03/02/2019 [facility] Fatty liver Active 03/02/2019 [facility] Physical exam, annual Active 03/02/2019 [facility] Closed displaced fracture of second metatarsal bone of left foot, initial encounter Active 03/02/2019 [facility] Palpitation Active 03/02/2019 [facility] Callus Active 03/02/2019 [facility] Open wound Active 03/02/2019 [facility] Bunion Active 03/02/2019 [facility] Urinary tract infection without hematuria, site unspecified Active 02/09/2019 [facility] Low blood pressure reading Active 11/24/2018 [facility] Alopecia Active 11/24/2018 [facility] Abnormal mammogram Active 03/02/2019 [facility] Anemia, unspecified type Active 03/02/2019 [facility] Medications Medication Details Route Status Patient Instructions Ordering Provider Order Date Source tropicamide (MYDRIACYL) 0.5 % ophthalmic solution Instill 1 Drop in each eye once as needed for up to 1 dose (for poor retina scan image). No Longer Active 02/13/2019 [facility] glimepiride (AMARYL) 1 mg tablet Take 1 tablet by mouth daily (with breakfast). Oral Active 02/13/2019 [facility] insulin NPH 100 unit/mL injection Inject 75 Units under the skin 2 times daily (before meals). Subcutaneous Active 01/05/2019 [facility] lisinopril (PRINIVIL) 10 mg tablet Take 1 tablet by mouth daily. Oral Active 01/05/2019 [facility] metoprolol succinate (TOPROL XL) 25 mg extended release tablet Take 1 tablet by mouth daily. Oral Active 01/05/2019 [facility] omeprazole (PRILOSEC) 20 mg delayed release capsule Take 1 capsule by mouth daily. Oral Active 01/05/2019 [facility] gabapentin (NEURONTIN) 600 mg tablet Take 1 tablet by mouth 2 times daily. Oral Active 01/05/2019 [facility] linagliptin (TRADJENTA) 5 mg tablet Take 1 tablet by mouth daily. Oral No Longer Active 01/05/2019 [facility] amitriptyline (ELAVIL) 25 mg tablet Take 2 tablets by mouth nightly at bedtime as needed for Sleep. Oral Active 12/22/2018 [facility] DULoxetine (CYMBALTA) 60 mg delayed release capsule Take 1 capsule by mouth daily. Oral Active 12/22/2018 [facility] linagliptin (TRADJENTA) 5 mg tablet Take 1 tablet by mouth daily. Oral No Longer Active 11/24/2018 [facility] metFORMIN (GLUCOPHAGE) 1,000 mg tablet Take 1 tablet by mouth 2 times daily (with meals). Oral Active 11/24/2018 [facility] benzonatate (TESSALON PERLES) 100 mg capsule Take 1-2 capsules by mouth every 8 hours as needed for cough. No Longer Active 10/31/2018 [facility] loratadine (CLARITIN) 10 mg tablet Take 1 tablet by mouth daily. Oral No Longer Active 10/31/2018 [facility] fluticasone propionate (FLONASE ALLERGY RELIEF) 50 mcg/actuation nasal spray Use 2 Sprays in each nostril daily. No Longer Active 10/31/2018 [facility] benzonatate (TESSALON PERLES) 100 mg capsule Take 1-2 capsules by mouth every 8 hours as needed for cough. Active 10/31/2018 [facility] loratadine (CLARITIN) 10 mg tablet Take 1 tablet by mouth daily. Oral Active 10/31/2018 [facility] fluticasone propionate (FLONASE ALLERGY RELIEF) 50 mcg/actuation nasal spray Use 2 Sprays in each nostril daily. Active 10/31/2018 [facility] nitrofurantoin (MACRODANTIN) 100 mg capsule Take 1 capsule by mouth 4 times daily for 10 days. Oral No Longer Active 10/07/2018 [facility] nitrofurantoin (MACRODANTIN) 100 mg capsule Take 1 capsule by mouth 4 times daily for 10 days. Oral No Longer Active 10/07/2018 [facility] linagliptin (TRADJENTA) 5 mg tablet Take 1 tablet by mouth daily. Oral Inactive 10/04/2018 [facility] omeprazole (PRILOSEC) 20 mg delayed release capsule Take 1 capsule by mouth daily. Oral No Longer Active 10/04/2018 [facility] linagliptin (TRADJENTA) 5 mg tablet Take 1 tablet by mouth daily. Oral Inactive 10/04/2018 [facility] metoprolol succinate (TOPROL XL) 25 mg extended release tablet Take 1 tablet by mouth daily. Oral No Longer Active 08/04/2018 [facility] gabapentin (NEURONTIN) 600 mg tablet Take 1 tablet by mouth 2 times daily. Oral No Longer Active 08/04/2018 [facility] gabapentin (NEURONTIN) 600 mg tablet Take 1 tablet by mouth 2 times daily. Oral Active 08/04/2018 [facility] insulin NPH 100 unit/mL injection Inject 75 Units under the skin 2 times daily (before meals). Subcutaneous No Longer Active 06/15/2018 [facility] metFORMIN (GLUCOPHAGE) 1,000 mg tablet Take 1 tablet by mouth 2 times daily (with meals). Oral No Longer Active 06/15/2018 [facility] lisinopril (PRINIVIL) 10 mg tablet Take 1 tablet by mouth daily. Oral No Longer Active 06/15/2018 [facility] insulin NPH 100 unit/mL injection Inject 75 Units under the skin 2 times daily (before meals). Subcutaneous Active 06/15/2018 [facility] lisinopril (PRINIVIL) 10 mg tablet Take 1 tablet by mouth daily. Oral Active 06/15/2018 [facility] amitriptyline (ELAVIL) 25 mg tablet Take 3 tablets by mouth nightly at bedtime as needed for Sleep. Oral No Longer Active 05/19/2018 [facility] DULoxetine (CYMBALTA) 60 mg delayed release capsule Take 1 capsule by mouth daily. Oral No Longer Active 05/19/2018 [facility] mupirocin (BACTROBAN) 2 % ointment Apply to affected area 3 times daily for 7 days. Topical No Longer Active 03/24/2018 [facility] mupirocin (BACTROBAN) 2 % ointment Apply to affected area 3 times daily for 7 days. Topical No Longer Active 03/24/2018 [facility] gabapentin (NEURONTIN) 600 mg tablet Take 1 tablet by mouth 2 times daily. Oral No Longer Active 03/23/2018 [facility] gabapentin (NEURONTIN) 600 mg tablet Take 1 tablet by mouth 2 times daily. Oral No Longer Active 03/23/2018 [facility] insulin NPH 100 unit/mL injection Inject 70 Units under the skin 2 times daily (before meals). Subcutaneous No Longer Active 03/16/2018 [facility] insulin NPH 100 unit/mL injection Inject 70 Units under the skin 2 times daily (before meals). Subcutaneous No Longer Active 03/16/2018 [facility] omeprazole (PRILOSEC) 20 mg delayed release capsule Take 1 capsule by mouth daily. Oral No Longer Active 03/15/2018 [facility] metoprolol succinate (TOPROL XL) 25 mg extended release tablet Take 1 tablet by mouth daily. Oral No Longer Active 02/25/2018 [facility] amitriptyline (ELAVIL) 25 mg tablet Take 3 tablets by mouth nightly at bedtime as needed for Sleep. Oral No Longer Active 02/24/2018 [facility] DULoxetine (CYMBALTA) 60 mg delayed release capsule Take 1 capsule by mouth daily. Oral No Longer Active 02/24/2018 [facility] nitrofurantoin (MACRODANTIN) 100 mg capsule Take 1 capsule by mouth 4 times daily for 7 days. Oral No Longer Active 02/15/2018 [facility] nitrofurantoin (MACRODANTIN) 100 mg capsule Take 1 capsule by mouth 4 times daily for 7 days. Oral No Longer Active 02/15/2018 [facility] insulin NPH 100 unit/mL injection Inject 65 Units under the skin 2 times daily (before meals). Subcutaneous No Longer Active 01/17/2018 [facility] metFORMIN (GLUCOPHAGE) 1,000 mg tablet Take 1 tablet by mouth 2 times daily (with meals). Oral No Longer Active 01/17/2018 [facility] lisinopril (PRINIVIL) 10 mg tablet Take 1 tablet by mouth daily. Oral No Longer Active 01/17/2018 [facility] DULoxetine (CYMBALTA) 60 mg delayed release capsule Take 1 capsule by mouth daily. Oral No Longer Active 01/17/2018 [facility] insulin NPH 100 unit/mL injection Inject 65 Units under the skin 2 times daily (before meals). Subcutaneous No Longer Active 01/17/2018 [facility] lisinopril (PRINIVIL) 10 mg tablet Take 1 tablet by mouth daily. Oral No Longer Active 01/17/2018 [facility] metoprolol succinate (TOPROL XL) 50 mg extended release tablet Take 1 tablet by mouth daily. Oral No Longer Active 11/24/2017 [facility] INSULIN SYRINGE 1mL 30GX5/16" syringe-needle Use to inject medication 2 times daily. Use a new syringe each time. Subcutaneous Active 11/24/2017 [facility] insulin REGULAR 100 unit/mL injection Twice daily under skin if sugars 201-250 - Inject 4 units ; if sugars 251-300 - Inject 6 unit; if sugars 301-350 - Inject 8 units; If sugars 351-400 - inject 10 units. Active 11/24/2017 [facility] lisinopril (PRINIVIL, ZESTRIL) 20 mg tablet Take 0.5 tablets by mouth daily. Oral No Longer Active 11/24/2017 [facility] metoprolol succinate (TOPROL XL) 50 mg extended release tablet Take 1 tablet by mouth daily. Oral No Longer Active 11/24/2017 [facility] insulin NPH (NOVOLIN N, HUMULIN N) 100 unit/mL injection Inject 55 Units under the skin 2 times daily (before meals). Subcutaneous No Longer Active 11/24/2017 [facility] insulin REGULAR 100 unit/mL injection Twice daily under skin if sugars 201-250 - Inject 4 units ; if sugars 251-300 - Inject 6 unit; if sugars 301-350 - Inject 8 units; If sugars 351-400 - inject 10 units. Active 11/24/2017 [facility] metFORMIN (GLUCOPHAGE) 1,000 mg tablet Take 1 tablet by mouth 2 times daily (with meals). Oral No Longer Active 11/09/2017 [facility] conjugated estrogens (PREMARIN) 0.625 mg/gram vaginal cream Insert 0.5 g vaginally 3 times weekly for 30 days. Vaginal No Longer Active 10/04/2017 [facility] amitriptyline (ELAVIL) 25 mg tablet Take 3 tablets by mouth nightly at bedtime as needed for Sleep. Oral No Longer Active 09/09/2017 [facility] hydrOXYzine (ATARAX) 25 mg tablet Take 1 tablet by mouth daily as needed for Anxiety. Oral No Longer Active 09/09/2017 [facility] DULoxetine (CYMBALTA) 60 mg delayed release capsule Take 1 capsule by mouth daily. Oral No Longer Active 09/09/2017 [facility] glyBURIDE micronized (GLYNASE) 3 mg tablet Take 2 tablets by mouth daily (with breakfast). Oral No Longer Active 08/25/2017 [facility] gabapentin (NEURONTIN) 600 mg tablet Take 1 tablet by mouth 2 times daily. Oral No Longer Active 07/12/2017 [facility] omeprazole (PRILOSEC) 20 mg delayed release capsule Take 1 capsule by mouth daily. Oral No Longer Active 07/12/2017 [facility] gabapentin (NEURONTIN) 600 mg tablet Take 1 tablet by mouth 2 times daily. Oral No Longer Active 07/12/2017 [facility] lisinopril (PRINIVIL, ZESTRIL) 20 mg tablet Take 1 tablet by mouth daily. Oral No Longer Active 07/12/2017 [facility] metoprolol succinate (TOPROL XL) 50 mg extended release tablet Take 2 tablets by mouth daily. Oral No Longer Active 07/12/2017 [facility] nitrofurantoin (MACRODANTIN) 100 mg capsule Take 1 capsule before intercourse and 1 capsule after interocourse. No Longer Active 07/12/2017 [facility] insulin 70/30 NPH - REGULAR (HUMULIN 70/30, NOVOLIN 70/30) 100 unit/mL injection Inject 40 Units under the skin 2 times daily (with meals). Subcutaneous No Longer Active 05/20/2017 [facility] nystatin (MYCOSTATIN) 100,000 unit/gram ointment Apply to affected area 2 times daily. Topical No Longer Active 05/10/2017 [facility] blood glucose meter Use as directed.. Active 09/03/2016 [facility] blood glucose test strips check blood sugar 3 times daily. Active 09/03/2016 [facility] lancets 28 gauge cgeck blood sugar 3 times daily. Active 09/03/2016 [facility] INSULIN SYRINGE 0.5mL 30GX5/16" (ULTRA COMFORT) syringe-needle Use to inject medication 2 times daily. Use a new syringe each time. Subcutaneous No Longer Active 09/03/2016 [facility] Allergies, Adverse Reactions, Alerts Substance Category Reaction Severity Reaction type Status Date Reported Comments Source Aspirin Palpitations Propensity to adverse reactions to drug Active 03/04/2012 [facility] Immunizations Immunization Date Given Site Status Last Updated Comments Source Influenza, Vaccine<FLUCELVAX>(Multi-Dose) 07/22/2018 Not Given Deferred: Patient Refused [facility] Influenza Vaccine, Seasonal, Injectable 09/16/2017 Not Given Deferred: Patient Refused [facility] Herpes Zoster Vaccine In Clinic 05/06/2017 completed Nilay [facility] Pneumococcal 13-valent conj 0.5 mL injection 09/03/2016 completed Mayank [facility] Triamcinolone 40mg/ml [facility]j [facility]03/[facility], diphtheria, acellular pertussis Vaccine 03/04/2012 completed [facility] Pneumoccoccal 03/04/2012 completed [facility] Results Order Name Results Value Reference Range Date Interpretation Comments Source MAMMOGRAM BILAT SCREEN DIGITAL <p>IMPRESSION: INCOMPLETE: NEEDS ADDITIONAL IMAGING EVALUATION</p><p>The 2.5 cm mass in the right breast appears indeterminate.3D </p><p>imaging view as well as an ultrasound are recommended.Please </p><p>place a Referral to [facility] code [id number]. </p><p> </p><p>I have reviewed the study and agree with the findings in the </p><p>report.</p><p> </p><p>This document has been electronically signed.</p><p> </p><p>Macrina Lynne M.D.</p><p>to,lse/:02/22/2019 12:10:48</p><p> </p><p>Plant Anatomist: Ms. Sailaja Deras RT(R)(M), [place] </p><p>[facility], [place]</p><p>letter sent: Additional Imaging Needed</p><p>Mammogram BI-RADS: 0 Indeterminate G0202 z12.31</p> IMPRESSION: INCOMPLETE: NEEDS ADDITIONAL IMAGING EVALUATIONThe 2.5 cm mass in the right breast appears indeterminate.3D imaging view as well as an ultrasound are recommended.Please place a Referral to [facility] code [id number]. I have reviewed the study and agree with the findings in the report. This document has been electronically signed. Macrina Lynne M.D.to,lse/:02/22/2019 12:10:48 Plant Anatomist: [facility]eden [facility] NeededMammogram BI-RADS: 0 Indeterminate G0202 z12.31 02/22/2019 [facility] MAMMOGRAM BILAT SCREEN DIGITAL <p> </p><p>#[id number] - MAMMOGRAM BILAT SCREEN DIGITAL</p><p>BILATERAL DIGITAL SCREENING MAMMOGRAM WITH CAD: 02/22/2019</p><p>CLINICAL: Screening for malignancy.</p><p> </p><p>Comparison is made to exams dated:04/29/2012, 10/20/2016, and </p><p>11/15/2017 [facility].</p><p>There are scattered fibroglandular elements in both breasts that </p><p>could obscure a lesion on mammography.</p><p>Current study was also evaluated with a Computer Aided Detection </p><p>(CAD) system.</p><p&a mp;gt;There is a 2.5 cm mass in the right breast at 11 o'clock posterior</p><p> depth.This is increased in size.</p><p>No other significant masses, calcifications, or other findings are</p><p> seen in either breast.There are benign calcifications in both </p><p>breasts.</p><p> </p> #[id number] - MAMMOGRAM BILAT SCREEN DIGITALBILATERAL DIGITAL SCREENING MAMMOGRAM WITH CAD: 02/22/2019CLINICAL: Screening for malignancy. Comparison is made to exams dated:04/29/2012, 10/20/2016, and 11/15/2017 [facility].There are scattered fibroglandular elements in both breasts that could obscure a lesion on mammography.Current study was also evaluated with a Computer Aided Detection (CA D) system.There is a 2.5 cm mass in the right breast at 11 o'clock posterior depth.This is increased in size.No other significant masses, calcifications, or other findings are seen in either breast.There are benign calcifications in both breasts. 02/22/2019 [facility] MAMMOGRAM BILAT SCREEN DIGITAL <p styleCode="header">Interface, Rad/Mammog In - 02/22/2019 1:30 PM CDT</p><p>
<span>#[id number] - MAMMOGRAM BILAT SCREEN DIGITAL</span>
<span>BILATERAL DIGITAL SCREENING MAMMOGRAM WITH CAD: 02/22/2019</span>
<span>CLINICAL: Screening for malignancy. </span>

<span>Comparison is made to exams dated: 04/29/2012, 10/20/2016, and </span>
<span>11/15/2017 [facility]. </span>
<span>There are scattered fibroglandular elements in both breasts that </span>
<span>could obscure a lesion on mammography. </span>
<span>Current study was also evaluated with a Computer Aided Detection </span>
<span>(CAD) system. </span>
<span>There is a 2.5 cm mass in the right breast at 11 o'clock posterior</span>
<span> depth. This is increased in size. </span>
<span>No other significant masses, calcifications, or other findings are</span>
<span> seen in either breast. There are benign calcifications in both </span>
<span>breasts. </span>

<span>IMPRESSION</span>
<span>IMPRESSION: INCOMPLETE: NEEDS ADDITIONAL IMAGING EVALUATION</span>
<span>The 2.5 cm mass in the right breast appears indeterminate. 3D </span>
<span>imaging view as well as an ultrasound are recommended. Please </span>
<span>place a Referral to [facility] code [id number]. </span>

<span>I have reviewed the study and agree with the findings in the </span>
<span>report.& amp;lt;/span>

<span>This document has been electronically signed.</span>

<span>Macrina Lynne M.D.</span>
<span>to,angie/:02/22/2019 12:10:48 </span>

&lt ;span>Plant Anatomist: Ms. Sailaja Deras RT(R)(M), [place] </span>
<span>[facility], [place]</span>
<span>letter sent: Additional Imaging Needed </span>
<span>Mammogram BI-RADS: 0 Indeterminate G0202 z12.31</span></p> Interface, Rad/Mammog In - 02/22/2019 1:30 PM CDT #[id number] - MAMMOGRAM BILAT SCREEN DIGITAL BILATERAL DIGITAL SCREENING MAMMOGRAM WITH CAD: 02/22/2019 CLINICAL: Screening for malignancy. Comparison is made to exams dated: 04/29/2012, 10/20/2016, and 11/15/2017 [facility]. There are scattered fibroglandular elements in both breasts that could obscure a lesion on mammography. Current study was also evaluated with a Computer Aided Detection (CAD) system. There is a 2.5 cm mass in the right breast at 11 o'clock posterior depth. This is increased in size. No other significant masses, calcifications, or other findings are seen in either breast. There are benign calcifications in both breasts. IMPRESSION IMPRESSION: INCOMPLETE: NEEDS ADDITIONAL IMAGING EVALUATION The 2.5 cm mass in the right breast appears indeterminate. 3D imaging view as well as an ultrasound are recommended. Please place a Referral to [facility] code [id number]. I have reviewed the study and agree with the findings in the report. This document has been electronically signed. Macrina Lynne M.D. to,lse/:02/22/2019 12:10:48 Plant Anatomist: Ms. Sailaja Deras RT(R)(M), [facility] letter sent: Additional Imaging Needed Mammogram BI-RADS: 0 Indeterminate G0202 z12.31 02/22/2019 [facility] OPHTHALMOLOGY RETINAL SCAN RETINAL SCAN-FINAL RESULT NORMAL 02/13/2019 [facility] OPHTHALMOLOGY RETINAL SCAN Right Diabetic Retinopathy None 02/13/2019 [facility] OPHTHALMOLOGY RETINAL SCAN Right Macular Edema None 02/13/2019 [facility] OPHTHALMOLOGY RETINAL SCAN Right Other Suspected Conditions None 02/13/2019 [facility] OPHTHALMOLOGY RETINAL SCAN Right Image Quality Gradeable Image 02/13/2019 [facility] OPHTHALMOLOGY RETINAL SCAN Left Diabetic Retinopathy None 02/13/2019 [facility] OPHTHALMOLOGY RETINAL SCAN Left Macular Edema None 02/13/2019 [facility] OPHTHALMOLOGY RETINAL SCAN Left Other Suspected Conditions None 02/13/2019 [facility] OPHTHALMOLOGY RETINAL SCAN Left Image Quality Gradeable Image 02/13/2019 [facility] OPHTHALMOLOGY RETINAL SCAN <p>Retinal Study Result for MARIUSZ MOLINA</p><p> </p><p>MARIUSZ MOLINA a 58 y/o, F (: 1960, )</p><p>presented to [facility] on 02-13-2019 for a retinal imaging study of the left and right eyes.</p><p> </p><p>Based on the findings of the study, the following is recommended for MARIUSZ MOLINA</p><p>Normal Scan: Please advise the patient to return for another scan in 1 year.</p><p> </p><p>Interpreting Provider's Comments:No comments provided</p><p> </p><p>Right Eye Findings:</p><p>Normal Result.Negative for Diabetic Retinopathy.</p><p> </p><p>Left Eye Findings:& amp;lt;/p><p>Normal Result.Negative for Diabetic Retinopathy.</p><p> </p><p> </p><p>This result was electronically signed by Hayes Gallegos MD, , Taxonomy: [id number] on 02-13-2019 05:01:30 [facility].</p><p> </p><p>NOTE:Any pathology noted on this diabetic retinal evaluation should be confirmed by an appropriate ophthalmic examination.</p> Retinal Study Result for MARIUSZ MOLINA CYNTHIA, a 58 y/o, F (: 1960, )presented to [facility] on 02-13-2019 for a retinal imaging study of the left and right eyes. Based on the findings of the study, the following is recommended for CHRIS MOLINAANormal Scan: Please advise the patient to return for another scan in 1 year. Interpreting Provider's Comments:No comments provided Right Eye Findings:Normal Result.Negative for Diabetic Retinopathy. Left Eye Findings:Normal Result.Negative for Diabetic Retinopathy. This result was electronically signed by Hayes Gallegos MD, , Taxonomy: [id number] on 02-13-2019 05:01:30 [facility] time. NOTE:Any pathology noted on this diabetic retinal evaluation should be confirmed by an a ppropriate ophthalmic examination. 02/13/2019 [facility] HEMOGLOBIN A1C <td ID="[id number]">Hemoglobin A1c</td><td>7.6</td><td>%</td><td>[facility]</td><td ID="[id number]"/> 7.6 02/10/2019 [facility] HEMOGLOBIN A1C Estimated Average Glucose 171 70 - 110 02/10/2019 [facility] HEMOGLOBIN A1C Lab Interpretation Abnormal 02/10/2019 [facility] COMPREHENSIVE METABOLIC PANEL <td ID="[id number]">Sodium</td><td>138</td><td>136 - 145 mmol/L</td><td>[facility]</td><td ID="[id number]"/> 138 136 - 145 02/09/2019 [facility] COMPREHENSIVE METABOLIC PANEL <td ID="[id number]">Potassium</td><td>4.8</td><td>3.5 - 5.1 mmol/L</td><td>[facility]</td><td ID="[id number]"/> 4.8 3.5 - 5.1 02/09/2019 [facility] COMPREHENSIVE METABOLIC PANEL <td ID="[id number]">Chloride</td><td><span style="flagData">96</span><span style="flagData"> (L)</span></td><td>98 - 107 mmol/L</td><td>[facility]</td><td ID="[id number]"/> 96 98 - 107 02/09/2019 [facility] COMPREHENSIVE METABOLIC PANEL CO2 32 21 - 31 02/09/2019 [facility] COMPREHENSIVE METABOLIC PANEL Glucose 165 70 - 110 02/09/2019 [facility] METABOLIC PANEL Calcium, Total 9.7 8.6 - 10.3 02/09/2019 [facility] COMPREHENSIVE METABOLIC PANEL Urea Nitrogen 11.0 7 - 25 02/09/2019 [facility] COMPREHENSIVE METABOLIC PANEL Creatinine 0.8 0.6 - 1.2 02/09/2019 [facility] COMPREHENSIVE METABOLIC PANEL Alkaline Phosphatase 63 34 - 104 02/09/2019 [facility] COMPREHENSIVE METABOLIC PANEL ALT 37 7 - 52 02/09/2019 [facility] COMPREHENSIVE METABOLIC PANEL AST 31 13 - 39 02/09/2019 [facility] COMPREHENSIVE METABOLIC PANEL <td ID="[id number]">Total Bilirubin</td><td>0.4</td><td>0.2 - 1.2 mg/dL</td><td>[facility]</td><td ID="[id number]"/> 0.4 0.2 - 1.2 02/09/2019 [facility] COMPREHENSIVE METABOLIC PANEL <td ID="[id number]">Total Protein</td><td>7.1</td><td>6.0 - 8.3 g/dL</td><td>[facility]</td><td ID="[id number]"/> 7.1 6 - 8.3 02/09/2019 [facility] COMPREHENSIVE METABOLIC PANEL GFR, Estimated 74 >=90 mL/min/1.73 m2 02/09/2019 [facility] COMPREHENSIVE METABOLIC PANEL <td ID="[id number]">Albumin</td><td>3.9</td><td>3.7 - 5.3 g/dL</td><td>[facility]</td><td ID="[id number]"/> 3.9 3.7 - 5.3 02/09/2019 [facility] COMPREHENSIVE METABOLIC PANEL Anion Gap 10 5 - 16 02/09/2019 [facility] COMPREHENSIVE METABOLIC PANEL Lab Interpretation Abnormal 02/09/2019 [facility] CBC <td ID="[id number]">WBC</td><td>8.6</td><td>4.5 - 11.0 K/uL</td><td>[facility]</td><td ID="[id number]"/> 8.6 4.5 - 11 02/09/2019 [facility] CBC <td ID="[id number]">RBC</td><td><span style="flagData">4.04</span><span style="flagData"> (L)</span></td><td>4.20 - 5.40 M/uL</td><td>[facility]</td><td ID="[id number]"/> 4.04 4.20 - 5.40 02/09/2019 [facility] CBC <td ID="[id number]">Hemoglobin</td><td><span style="flagData">11.2</span><span style="flagData"> (L)</span></td><td>12.0 - 16.0 g/dL</td><td>[facility]</td><td ID="Bzhfij707153556Enrv3Fvcqneymd"/> 11.2 12 - 16 02/09/2019 [facility] CBC <td ID="[id number]">Hematocrit</td><td><span style="flagData">36.5</span><span style="flagData"> (L)</span></td><td>37.0 - 47.0 %</td><td>[facility]</td><td ID="Progtq754496474Cgin2Pzzbzuulq"/> 36.5 37 - 47 02/09/2019 [facility] CBC <td ID="[id number]">MCV</td><td>90.3</td><td>82.0 - 92.0 fL</td><td>[facility]</td><td ID="[id number]"/> 90.3 82 - 92 02/09/2019 [facility] CBC <td ID="[id number]">MCH</td><td>27.7</td><td>27.0 - 32.0 pg</td><td>[facility]</td><td ID="[id number]"/> 27.7 27 - 32 02/09/2019 [facility] CBC <td ID="[id number]">MCHC</td><td><span style="flagData">30.7</span><span style="flagData"> (L)</span></td><td>32.0 - 36.0 g/dL</td><td>[facility]</td><td ID="Peudpz244933674Eall1Cnfzdphcn"/> 30.7 32 - 36 02/09/2019 [facility] CBC <td ID="[id number]">RDW</td><td><span style="flagData">47.2</span><span style="flagData"> (H)</span></td><td>36.4 - 46.3 fL</td><td>[facility]</td><td ID="[id number]"/> 47.2 36.4 - 46.3 02/09/2019 [facility] CBC <td ID="[id number]">Platelet</td><td>225</td><td>150 - 400 K/uL</td><td>[facility]</td><td ID="[id number]"/> 225 150 - 400 02/09/2019 [facility] CBC <td ID="[id number]">Mean Platelet Volume</td><td>11.6</td><td>9.4 - 12.4 fL</td><td>[facility]</td><td ID="[id number]"/> 11.6 9.4 - 12.4 02/09/2019 [facility] CBC Percent NRBC 0.0 02/09/2019 [facility] CBC Lab Interpretation Abnormal 02/09/2019 [facility] HEMOGLOBIN A1C <td ID="[id number]">Hemoglobin A1c</td><td><span style="flagData">8.3</span><span style="flagData"> (H)</span></td><td>4.3 - 6.1 %</td><td>[facility]NOSTIC IMMUNOLOGY</td><td ID="[id number]"/> 8.3 4.3 - 6.1 11/04/2018 [facility] HEMOGLOBIN A1C Est Average Gluc 191.5 11/04/2018 [facility] HEMOGLOBIN A1C Lab Interpretation Abnormal 11/04/2018 [facility] COMPREHENSIVE METABOLIC PANEL(DBIL NOT INCLUDED) <td ID="[id number]">Albumin</td><td>3.9</td><td>3.7 - 5.3 g/dL</td><td>[facility]</td><td ID="[id number]"/> 3.9 3.7 - 5.3 11/04/2018 [facility] COMPREHENSIVE METABOLIC PANEL(DBIL NOT INCLUDED) <td ID="[id number]">Calcium</td><td>9.5</td><td>8.6 - 10.3 mg/dL</td><td>[facility]</td><td ID="[id number]"/> 9.5 8.6 - 10.3 11/04/2018 [facility] COMPREHENSIVE METABOLIC PANEL(DBIL NOT INCLUDED) <td ID="[id number]">CO2</td><td>30</td><td>21 - 31 mmol/L</td><td>[facility]</td><td ID="[id number]"/> 30 21 - 31 11/04/2018 [facility] COMPREHENSIVE METABOLIC PANEL(DBIL NOT INCLUDED) <td ID="[id number]">Chloride</td><td>99</td><td>98 - 107 mmol/L</td><td>[facility]</td><td ID="[id number]"/> 99 98 - 107 11/04/2018 [facility] COMPREHENSIVE METABOLIC PANEL(DBIL NOT INCLUDED) <td ID="[id number]">Creatinine</td><td>0.70</td><td>0.6 - 1.2 mg/dL</td><td>[facility]</td><td ID="[id number]"/> 0.70 0.6 - 1.2 11/04/2018 [facility] COMPREHENSIVE METABOLIC PANEL(DBIL NOT INCLUDED) <td ID="[id number]">Glucose</td><td>82</td><td>70 - 110 mg/dL</td><td>[facility]</td><td ID="[id number]"/> 82 70 - 110 11/04/2018 [facility] COMPREHENSIVE METABOLIC PANEL(DBIL NOT INCLUDED) <td ID="[id number]">Alkaline Phosphatase, S</td><td>68</td><td>34 - 104 U/L</td><td>[facility]</td><td ID="[id number]"/> 68 34 - 104 11/04/2018 [facility] COMPREHENSIVE METABOLIC PANEL(DBIL NOT INCLUDED) <td ID="[id number]">Potassium</td><td>4.5</td><td>3.5 - 5.1 mmol/L</td><td>[facility]</td><td ID="[id number]"/> 4.5 3.5 - 5.1 11/04/2018 [facility] COMPREHENSIVE METABOLIC PANEL(DBIL NOT INCLUDED) <td ID="Qktauc276059945Kniy1Zmiu">Sodium</td><td>138</td><td>136 - 145 mmol/L</td><td>[facility]</td><td ID="Ynckoe135229071Snop5Ywtqjtkmf"/> 138 136 - 145 11/04/2018 [facility] COMPREHENSIVE METABOLIC PANEL(DBIL NOT INCLUDED) <td ID="[id number]">ALT</td><td>49</td><td>7 - 52 U/L</td><td>[facility]</td><td ID="Ntxfau744067874Rvwm94Cuaylxled"/> 49 7 - 52 11/04/2018 [facility] COMPREHENSIVE METABOLIC PANEL(DBIL NOT INCLUDED) <td ID="[id number]">AST (SGOT)</td><td><span style="flagData">47</span><span style="flagData"> (H)</span></td><td>13 - 39 U/L</td><td>[facility]</td><td ID="[id number]"/> 47 13 - 39 11/04/2018 [facility] COMPREHENSIVE METABOLIC PANEL(DBIL NOT INCLUDED) <td ID="[id number]">BUN</td><td>12</td><td>7 - 25 mg/dL</td><td>[facility]</td><td ID="[id number]"/> 12 7 - 25 11/04/2018 [facility] COMPREHENSIVE METABOLIC PANEL(DBIL NOT INCLUDED) <td ID="[id number]">Bilirubin, Total</td><td>0.3</td><td>0.2 - 1.2 mg/dL</td><td>[facility]</td><td ID="[id number]"/> 0.3 0.2 - 1.2 11/04/2018 [facility] COMPREHENSIVE METABOLIC PANEL(DBIL NOT INCLUDED) <td ID="[id number]">Protein, Total, Serum</td><td>7.2</td><td>6.0 - 8.3 g/dL</td><td>[facility]</td><td ID="[id number]"/> 7.2 6 - 8.3 11/04/2018 [facility] COMPREHENSIVE METABOLIC PANEL(DBIL NOT INCLUDED) GFR, Estimated >60 mL/min/1.73 m2 11/04/2018 [facility] COMPREHENSIVE METABOLIC PANEL(DBIL NOT INCLUDED) eGFR If Africn Am >60 mL/min/1.73 m2 11/04/2018 [facility] COMPREHENSIVE METABOLIC PANEL(DBIL NOT INCLUDED) Anion Gap 9 11/04/2018 [facility] COMPREHENSIVE METABOLIC PANEL(DBIL NOT INCLUDED) Lab Interpretation Abnormal 11/04/2018 [facility] LIPID PROFILE <td ID="[id number]">Cholesterol</td><td><span>186</span>
<span style="allIndent"><span style="cellHeader">Comment: </span>
<span ID="[id number]" style="pre">REFERENCE RANGE:
Desirable: <200 mg/dL
Borderline: 200-240 mg/dL
High Risk: >240 mg/dL

</span></span></td><td>mg/dL</td><td>[facility]</td><td ID=&amp ;quot;[id number]"/> 186 11/04/2018 REFERENCE RANGE:
Desirable: <200 mg/dL
Borderline: 200-240 mg/dL
High Risk: >240 mg/dL

[facility] LIPID PROFILE <td ID="[id number]">Triglyceride</td><td><span>135</span>
<span style="allIndent"><span style="cellHeader">Comment: </span>
<span ID="[id number]" style="pre">REFERENCE RANGE:
Normal: <150 mg/dL
Borderline High: 150-199 mg/dL
High: 200-499 mg/dL
Very High: >fk=032 mg/dL

</span></span></td><td><150 mg/dL</td><td>[facility]</td><td ID="[id number]"/> 135 <150 11/04/2018 REFERENCE RANGE:
Normal: <150 mg/dL
Borderline High: 150-199 mg/dL
High: 200-499 mg/dL
Very High: >re=133 mg/dL

[facility] LIPID PROFILE <td ID="[id number]">HDL</td><td><span>44</span>
<span style="allIndent"><span style="cellHeader">Comment: </span>
<span ID="[id number]" style="pre">Increased CHD risk: <40 mg/dL
Decreased CHD risk: >60 mg/dL

</span></span>&am p;lt;/td><td>mg/dL</td><td>[facility]</td><td ID="[id number]"/> 44 11/04/2018 Increased CHD risk: <40 mg/dL
Decreased CHD risk: >60 mg/dL

[facility] LIPID PROFILE <td ID="[id number]">LDL</td><td><span>115</span>
<span style="allIndent"><span style="cellHeader">Comment: </span>
<span ID="[id number]" style="pre">REFERENCE RANGE:
Optimal: <100 mg/dL
Near Optimal: 100-129 mg/dL
Borderline High: 130-159 mg/dL
High: 160-189 mg/dL
Very High: >tk=981 mg/dL

</span></span></td><td>mg/dL</td><td>[facility]</td><td ID="[id number]"/> 115 11/04/2018 REFERENCE RANGE:
Optimal: <100 mg/dL
Near Optimal: 100-129 mg/dL
Borderline High: 130-159 mg/dL
High: 160-189 mg/dL
Very High: >yc=923 mg/dL

[facility] URINE CULTURE Culture >100,000 colonist/ml Streptococcus beta hemolytic, group B MICROBIOLOGY 10/07/2018 [facility] DIABETIC FOOT EXAM <p>Ai Austin PA 10/07/2018 10:55 AM</p><p>Diabetic Foot Exam was performed at 10/07/2018 10:47 AM.Right foot </p><p>sensation is normal, right foot pulses are normal, right foot appearance </p><p>is abnormal.Left foot sensation is normal,left foot pulses are normal, </p><p> left foot appearance is abnormal. </p><p> </p><p> </p> Ai Austin PA 10/07/2018 10:55 AMDiabetic Foot Exam was performed at 10/07/2018 10:47 AM.Right foot sensation is normal, right foot pulses are normal, right foot appearance is abnormal.Left foot sensation is normal,left foot pulses are normal, left foot appearance is abnormal. 10/07/2018 [facility] POC URINE DIPSTICK, WITHOUT MICRO Color POC mi - - - 10/07/2018 [facility] POC URINE DIPSTICK, WITHOUT MICRO Clarity POC cloudy - - - 10/07/2018 [facility] POC URINE DIPSTICK, WITHOUT MICRO Spec Salkum POC 1.020 1.005 - 1.030 10/07/2018 [facility] POC URINE DIPSTICK, WITHOUT MICRO pH POC 6.0 5.0 - 7.0 10/07/2018 [facility] POC URINE DIPSTICK, WITHOUT MICRO Protein POC 3+ Neg 10/07/2018 [facility] POC URINE DIPSTICK, WITHOUT MICRO Glucose POC 2+ Neg 10/07/2018 [facility] POC URINE DIPSTICK, WITHOUT MICRO Ketone POC 1+ Neg 10/07/2018 [facility] POC URINE DIPSTICK, WITHOUT MICRO Bilirubin POC 1+ Neg 10/07/2018 [facility] POC URINE DIPSTICK, WITHOUT MICRO Nitrate POC Pos Neg 10/07/2018 [facility] POC URINE DIPSTICK, WITHOUT MICRO Urobilinogen POC 4.0 0.2 - 1 10/07/2018 [facility] POC URINE DIPSTICK, WITHOUT MICRO Leukocyte POC 3+ Neg 10/07/2018 [facility] POC URINE DIPSTICK, WITHOUT MICRO Blood POC 1+ Neg 10/07/2018 [facility] POC URINE DIPSTICK, WITHOUT MICRO Lab Interpretation Abnormal 10/07/2018 [facility] HEPATITIS PANEL <td ID="[id number]">HCV IgG</td><td>Negative</td><td>NEG</td><td>[facility]</td><td ID="[id number]"/> Negative NEG 08/05/2018 [facility] HEPATITIS PANEL <td ID="[id number]">HBsAg</td><td>Negative</td><td>NEG</td><td>[facility]</td><td ID="[id number]"/> Negative NEG 08/05/2018 [facility] HEPATITIS PANEL <td ID="[id number]">HAV, IgM</td><td>Negative</td><td>NEG</td><td>[facility]</td><td ID="[id number]"/> Negative NEG 08/05/2018 [facility] HEPATITIS PANEL <td ID="[id number]">HBcAb, IgM</td><td>Negative</td><td>NEG</td><td>[facility]</td><td ID="[id number]"/> Negative NEG 08/05/2018 [facility] LIVER PROFILE <td ID="[id number]">Protein, Total, Serum</td><td>7.0</td><td>6.0 - 8.3 g/dL</td><td>[facility]</td><td ID="[id number]"/> 7.0 6 - 8.3 08/05/2018 [facility] LIVER PROFILE <td ID="[id number]">Albumin</td><td>4.1</td><td>3.7 - 5.3 g/dL</td><td>[facility]</td><td ID="[id number]"/> 4.1 3.7 - 5.3 08/05/2018 [facility] LIVER PROFILE <td ID="[id number]">Bilirubin, Total</td><td>0.3</td><td>0.2 - 1.2 mg/dL</td><td>[facility]</td><td ID="[id number]"/> 0.3 0.2 - 1.2 08/05/2018 [facility] LIVER PROFILE <td ID="[id number]">Alkaline Phosphatase, S</td><td>60</td><td>34 - 104 U/L</td><td>[facility]</td><td ID="[id number]"/> 60 34 - 104 08/05/2018 [facility] LIVER PROFILE <td ID="[id number]">AST (SGOT)</td><td><span style="flagData">44</span><span style="flagData"> (H)</span></td><td>13 - 39 U/L</td><td>[facility] 1</td><td ID="[id number]"/> 44 13 - 39 08/05/2018 [facility] LIVER PROFILE <td ID="[id number]">ALT</td><td><span style="flagData">53</span><span style="flagData"> (H)</span></td><td>7 - 52 U/L</td><td>[facility] 1</td><td ID="[id number]"/> 53 7 - 52 08/05/2018 [facility] LIVER PROFILE <td ID="[id number]">D Bilirubin</td><td><span style="flagData"><0.0</span><span style="flagData"> (L)</span></td><td>0.0 - 0.2 mg/dL</td><td>[facility]ATION 1</td><td ID="[id number]"/> <0.0 0 - 0.2 08/05/2018 [facility] LIVER PROFILE Lab Interpretation Abnormal 08/05/2018 [facility] VIT D, 25-HYDROXY Vit D, 25-Hydroxy 19.7 30 - 100 07/24/2018 Vitamin D deficiency has been defined by the [place] of [employer] and
Endocrine Society guideline as a level of serum 25-OH Vitamin D less than 20
ng/mL. The Endocrine Society further defines Vitamin D insufficiency as a
level between 21 and 29 ng/mL and sufficiency as a level between 30 and 100
ng/mL.

[facility] VIT D, 25-HYDROXY Lab Interpretation Abnormal 07/24/2018 [facility] 24 HOUR HOLTER MONITOR 24 HOUR HOLTER MONITOR [facility] Test Date:2018-04-25 Pat Name: MARIUSZ MOLINA Department: : Gender: FTechnician: ASHLEY DIMASZOLA :1960 Requested By: Order Number:Bryan MD: Lexy Kessler M.D. Interpretive Statements PREDOMINANT RHYTHM: SINUS HR RANGE: 56-129 BPM LONGEST R-R INTERVAL: 1.2 SEC (4:34 AM) NO PACS NO PVCS NO ISCHEMIC CHANGES Electronically Signed On 04-27-18 14:28:49 CDT by Lexy Kessler M.D. 04/27/2018 [facility] FREE T4 Free T4 0.69 0.61 - 1.18 04/01/2018 females:
1st Trimester-0.52-1.10 ng/dL
2nd Trimester=0.45- 0.99 ng/dL
3rd Trimester=0.48-0.95 ng/dL

[facility] TSH <td ID="[id number]">TSH</td><td>1.47</td><td>0.57 - 3.74 uIU/mL</td><td>[facility] 1</td><td ID="[id number]"/> 1.47 0.57 - 3.74 04/01/2018 [facility] 12 LEAD EKG 12 LEAD EKG FOR CHP [facility] Test Date:2018-03-24 Pat Name: MARIUSZ MOLINA Department: : Gender: FTechnician: [id number] :1960 Requested By: Order Number:Reading MD: Hailey Flowers Measurements IntervalsAxis Rate: 73 P:44 NM: 145QRS:55 QRSD: 96 T:38 QT: 364 QTc:401 Interpretive Statements SINUS RHYTHM Electronically Signed On 03-24-18 17:37:01 CDT by Hailey Flowers 03/24/2018 [facility] OCCULT BLOOD ICT <td ID="[id number]">Occult Blood ICT</td><td>Negative</td><td>NEG</td><td>[facility]</td><td ID="[id number]"/> Negative NEG 03/16/2018 [facility] MICROALBUM, URINE <td ID="[id number]">Microalbum, Random</td><td>1.8</td><td>0.0 - 29.0 mg/dL</td><td>BT MAIN-STATION 1</td><td ID="[id number]"/> 1.8 0 - 29 03/09/2018 [facility] MICROALBUM, URINE Creatinine, Urine 40.6 20 - 320 03/09/2018 [facility] MICROALBUM, URINE <td ID="[id number]">Urine Microalbumin</td><td><span style="flagData">44.3</span><span style="flagData"> (H)</span>
<span style="allIndent"><span style="cellHeader">Comment: </span>
<span ID="[id number]" style="pre">To minimize intra-individual variation, analysis of three random urine
samples collected over the course of a week is recommended.

</span></span></td><td>0 - 29 mg/g UCR</td><td>BT MAIN-STATION 1</td><td ID="[id number]"/> 44.3 0 - 29 03/09/2018 To minimize intra-individual variation, analysis of three random urine
samples collected over the course of a week is recommended.

[facility] MICROALBUM, URINE Lab Interpretation Abnormal 03/09/2018 [facility] FERRITIN Ferritin 24.20 11 - 306.8 11/25/2017 [facility] CBC/DIFF WBC 8.6 4.5 - 11 11/25/2017 [facility] CBC/DIFF RBC 4.21 4.20 - 5.40 11/25/2017 [facility] CBC/DIFF Hemoglobin 12.5 12 - 16 11/25/2017 [facility] CBC/DIFF Hematocrit 38.6 37 - 47 11/25/2017 [facility] CBC/DIFF MCV 92 82 - 92 11/25/2017 [facility] CBC/DIFF MCH 29.7 27 - 32 11/25/2017 [facility] CBC/DIFF MCHC 32.4 32 - 36 11/25/2017 [facility] CBC/DIFF RDW 45.8 36.4 - 46.3 11/25/2017 [facility] CBC/DIFF Platelet 248 150 - 400 11/25/2017 [facility] CBC/DIFF Mean Platelet Volume 11.6 9.4 - 12.4 11/25/2017 [facility] CBC/DIFF Percent NRBC 0.0 11/25/2017 [facility] CBC/DIFF Absolute NRBC 0.00 11/25/2017 [facility] CBC/DIFF Neutrophil 38.5 34 - 70 11/25/2017 [facility] CBC/DIFF Lymphocyte 53.1 20 - 50 11/25/2017 [facility] CBC/DIFF Monocyte 4.9 5 - 12 11/25/2017 [facility] CBC/DIFF Eosinophil 2.7 0.7 - 5 11/25/2017 [facility] CBC/DIFF Basophil 0.6 0.1 - 1.2 11/25/2017 [facility] CBC/DIFF Pct Immat Gran 0.2 0.0 - 0.5 11/25/2017 [facility] CBC/DIFF Neutrophil, Abs 3.29 1.56 - 6.13 11/25/2017 [facility] CBC/DIFF Lymphocyte, Abs 4.54 1.18 - 3.74 11/25/2017 [facility] CBC/DIFF Monocyte, Abs 0.42 0.24 - 0.36 11/25/2017 [facility] CBC/DIFF Eosinophil, Abs 0.23 0.04 - 0.36 11/25/2017 [facility] CBC/DIFF Basophil, Abs 0.05 0.01 - 0.08 11/25/2017 [facility] CBC/DIFF Absol Immat Gran 0.02 0 - 0.03 11/25/2017 [facility] CBC/DIFF Lab Interpretation Abnormal 11/25/2017 [facility] Pathology Reports No Data Provided for This Section Diagnostic Reports Report Value Date Source XRAY FOOT 3 VIEWS MIN IMPRESSION: 1.Progressed but incomplete healing of oblique mildly displacedfracture of second metatarsal distal diaphysis. Unchanged surroundingcallus formation. No change in alignment.2.Unchanged moderate to severe hallux valgus. Dictated By: Donald Lau DO, 09/30/2018 9:17 AM I have reviewed the study and agree with the findings in this report. Signed By: John Evans DO, 09/30/2018 9:24 AM Left foot x-rays - 3 view(s) HISTORY:f/u 8 week xray left foot 2nd met COMPARISON: Left foot x-rays to 06/14/2019 DISCUSSION:None. Interface, Rad/Mammog In - 09/30/2018 9:29 AM CSTLeft foot x-rays - 3 view(s) HISTORY: f/u [...] By: John Evans DO, 09/30/2018 9:24 AM 09/30/2018 [facility] U/S ABDOMEN IMPRESSION:Hepatomegaly with hepatic steatosis. Dictated By: Cali Vazquez DO, 04/01/2018 8:35 AM I have reviewed the study and agree with the findings in this report. Signed By: Hiren Lopez MD, 04/01/2018 9:05 AM EXAM: Complete Abdominal UltrasoundINDICATION: elevated lft COMPARISON: Renal ultrasound 10/19/2017, abdominal ultrasound 05/10/2012. TECHNIQUE: Transverse and longitudinal images of the upper abdomen wereobtained. FINDINGS: Liver: Size: 16.7 cm in the [...] 1 x 1 x 1 cm within theinterpolar region and 1.7 x 1.3 x 1.3 cm within the superior pole,stable in size given differences in technique. Vessels: Aorta: Visualized portions are normal Inferior Vena Cava: Visualized portions are normal Main Portal Vein: 1.2 cm, normal size with hepatopetal flow. Free Fluid: No ascites or pleural effusion Soft tissue: Fat-containing hernia within the right mid to lower quadrant. Interface, Rad/Mammog In - 04/01/2018 9:10 AM CDTEXAM: Complete Abdominal Ultrasound INDICATION: elevated lft COMPARISON: [...] By: Hiren Lopez MD, 04/01/2018 9:05 AM 04/01/2018 [facility] Consultation Notes No Data Provided for This Section Discharge Summaries No Data Provided for This Section History and Physicals No Data Provided for This Section Vital Signs Vital Sign Value Date Comments Source Systolic (mm Hg) 114 03/02/2019 [facility] Diastolic (mm Hg) 38 03/02/2019 [facility] Heart Rate 63 03/02/2019 [facility] Temperature Oral (F) 36.67 Joselyn 03/02/2019 [facility] Respitory Rate 16 03/02/2019 [facility] Height 162.6 cm 03/02/2019 [facility] Weight 89.812 03/02/2019 [facility] Systolic (mm Hg) 121 01/05/2019 [facility] Diastolic (mm Hg) 57 01/05/2019 [facility] Heart Rate 73 01/05/2019 [facility] Temperature Oral (F) 36.78 Joselyn 01/05/2019 [facility] Respitory Rate 18 01/05/2019 [facility] Height 162.6 cm 01/05/2019 [facility] Weight 90.719 01/05/2019 [facility] Systolic (mm Hg) 103 10/31/2018 [facility] Diastolic (mm Hg) 47 10/31/2018 [facility] Heart Rate 87 10/31/2018 [facility] Temperature Oral (F) 36.83 Joselyn 10/31/2018 [facility] Respitory Rate 18 10/31/2018 [facility] Height 162.6 cm 10/31/2018 [facility] Weight 87.998 10/31/2018 [facility] Encounters Location Location Details Encounter Type Encounter Number Reason For Visit Attending Provider ADM Date DC Date Status Source Family Practice Shorter Orders Only [id number] Benoit Gamez MD 11/24/2017 [facility] Patient Education Shorter Patient Education [id number] Anirudh Navarrete RN 11/24/2017 [facility] Family Practice Shorter Office Visit [id number] Benoit Gamez MD 11/24/2017 11/24/2017 [facility] Hairspring Truer Shorter Telephone [id number] Silvana Crain 11/26/2017 [facility] Psychiatry Shorter Refill [id number] Boo Schreoder MD 01/17/2018 [facility] Clinical Pharmacy Shorter Office Visit [id number] Lurdes Cantieri [facility] 01/17/2018 01/17/2018 [facility] Clinical Pharmacy Shorter Office Visit [id number] Lurdes Cantieri [facility] 02/14/2018 02/14/2018 [facility] MOSMT Same Day Same Day [id number] Rediate Brown [place] MAORI 02/15/2018 02/15/2018 [facility] Psychiatry Shorter Office Visit [id number] Fili Andre MD 02/24/2018 02/24/2018 [facility] Shorter Office Visit [id number] Fili Andre MD 02/25/2018 02/25/2018 [facility] Clinical Pharmacy Shorter Orders Only [id number] Lurdes Cantieri [facility] 03/08/2018 [facility] Shorter Refill [id number] Fili Andre MD 03/13/2018 [facility] Clinical Pharmacy Shorter Office Visit [id number] Lurdes Cantieri [facility] 03/16/2018 03/16/2018 [facility] Shorter Refill [id number] Fili Andre MD 03/20/2018 [facility] Shorter Office Visit [id number] Fili Andre MD 03/24/2018 03/24/2018 [facility] Radiology Shorter Ancillary Procedure [id number] Fili Andre MD 03/31/2018 03/31/2018 [facility] SC Ultrasound Ancillary Procedure [id number] 04/01/2018 04/01/2018 [facility] CARDIOLOGY SERVICES Hospital Encounter [id number] Fili Andre MD 04/25/2018 04/26/2018 [facility] Practice Shorter Telephone [id number] Fili Andre MD 05/09/2018 [facility] Clinical Pharmacy Shorter Office Visit [id number] Lurdes Cantieri [facility] 05/11/2018 05/11/2018 [facility] Psychiatry Shorter Office Visit [id number] Boo Schroeder MD 05/19/2018 05/19/2018 [facility] Podiatry Shorter Office Visit [id number] Lindsey Malik DPM 06/10/2018 06/10/2018 [facility] Radiology Shorter Ancillary Procedure [id number] Lindsey Qaadri DPM 06/10/2018 06/10/2018 [facility] Clinical Pharmacy Shorter Office Visit [id number] Lurdes Edward [facility] 06/15/2018 06/15/2018 [facility] Travel [id number] 07/20/2018 [facility] Family Practice Shorter Office Visit [id number] Fili Andre MD 07/22/2018 07/22/2018 [facility] Practice Shorter Telephone [id number] Fili Andre MD 07/24/2018 [facility] Shorter Telephone [id number] Fili Andre MD 08/03/2018 [facility] Shorter Telephone [id number] Fili Andre MD 08/04/2018 [facility] Shorter Orders Only [id number] Fili Andre MD 08/04/2018 [facility] Travel [id number] 08/04/2018 [facility] Clinical Pharmacy Shorter Office Visit [id number] Lurdes Edward [facility] 08/04/2018 08/04/2018 [facility] Radiology Shorter Ancillary Procedure [id number] Lindsey Qaadri DPM 08/04/2018 08/04/2018 [facility] Podiatry Shorter Office Visit [id number] [place] Qaadri DPM 08/05/2018 08/05/2018 [facility] Travel [id number] 09/05/2018 [facility] Orthopedics Clinic [place] Office Visit [id number] Sotero Larsen MD 09/05/2018 09/05/2018 [facility] Radiology OC Hospital Encounter [id number] Fili Andre MD 09/05/2018 09/06/2018 [facility] [place] Orders Only [id number] Dilip Godoy MD 09/06/2018 [facility] Shorter Orders Only [id number] Fili Andre MD 09/14/2018 [facility] Practice Shorter Telephone [id number] Verónica Ordaz RN 09/14/2018 [facility] Travel [id number] 09/30/2018 [facility] Radiology Shorter Ancillary Procedure [id number] Fili Andre MD 09/30/2018 09/30/2018 [facility] Podiatry Shorter Office Visit [id number] [place] Qaadri DPM 09/30/2018 09/30/2018 [facility] Practice Shorter Refill [id number] Fili Andre MD 10/04/2018 [facility] Clinical Pharmacy Shorter Office Visit [id number] Fili Andre MD 10/04/2018 10/04/2018 [facility] MOSDC Same Day Office Visit [id number] Ai MENDOZA 10/07/2018 10/07/2018 [facility] Travel [id number] 10/31/2018 [facility] MOSMT Same Day Same Day [id number] Carmelita Dasilva [place] 10/31/2018 10/31/2018 [facility] Travel [id number] 11/02/2018 [facility] Travel [id number] 11/24/2018 [facility] Clinical Pharmacy Shorter Office Visit [id number] Lurdes Jaysmith [facility] 11/24/2018 11/24/2018 [facility] Psychiatry Shorter Office Visit [id number] Boo Schroeder MD 12/22/2018 12/22/2018 [facility] Travel [id number] 01/05/2019 [facility] Clinical Pharmacy Shorter Office Visit [id number] Lurdes Wagner [facility] 01/05/2019 01/05/2019 [facility] Travel [id number] 02/09/2019 [facility] Practice Shorter Office Visit [id number] Fili Andre MD 02/13/2019 02/13/2019 [facility] Ophthalmology/Optometry Straw* Ancillary Procedure [id number] Fili Andre MD 02/13/2019 02/13/2019 [facility] Mammography Shorter Ancillary Procedure [id number] Fili Andre MD 02/22/2019 02/22/2019 [facility] Practice Shorter Telephone [id number] Fili Andre MD 02/23/2019 [facility] Mammography [facility] Telephone [id number] Ebonie Vang 02/24/2019 [facility] Travel [id number] 03/02/2019 [facility] Clinical Pharmacy Shorter Office Visit [id number] Lurdes Wagner [facility] 03/02/2019 03/02/2019 [facility] Procedures Procedure Code Date Perfomer Comments Source MAMMOGRAM BILAT SCREEN DIGITAL G0202 02/22/2019 [facility] OPHTHALMOLOGY RETINAL SCAN [id number] 02/13/2019 [facility] HEMOGLOBIN A1C 84311 02/09/2019 [facility] CBC (WITHOUT DIFFERENTIAL) 10697 02/09/2019 [facility] COMPREHENSIVE METABOLIC PANEL 25677 02/09/2019 [facility] HEMOGLOBIN A1C 46482 11/04/2018 [facility] COMPREHENSIVE METABOLIC PANEL 77635 11/04/2018 [facility] LIPID PROFILE 43835 11/04/2018 [facility] COMPREHENSIVE METABOLIC PANEL(DBIL NOT INCLUDED) 79540 11/04/2018 [facility] DIABETIC FOOT EXAM 10/07/2018 [facility] URINE CULTURE 27627 10/07/2018 [facility] POC URINE DIPSTICK, WITHOUT MICRO 62319 10/07/[address] [facility] XRAY FOOT 3 VIEWS MIN 36990 09/30/2018 [facility] XRAY FOOT 3 VIEWS MIN 87541 09/05/2018 [facility] XRAY FOOT 3 VIEWS MIN 13433 08/04/2018 [facility] HEPATITIS PANEL 76386 08/04/2018 [facility] LIVER PROFILE 64019 08/04/2018 [facility] HEMOGLOBIN A1C 23825 07/23/2018 [facility] VIT D, 25-HYDROXY 95171 07/23/2018 [facility] COMPREHENSIVE METABOLIC PANEL 96552 07/23/2018 [facility] COMPREHENSIVE METABOLIC PANEL(DBIL NOT INCLUDED) 59849 07/23/2018 [facility] XRAY FOOT 3 VIEWS MIN 17641 06/10/2018 [facility] DIABETIC FOOT EXAM 06/10/2018 [facility] HEMOGLOBIN A1C 01823 06/10/2018 [facility] 24 HOUR HOLTER MONITOR 33235 04/25/2018 [facility] U/S ABDOMEN 98693 04/01/2018 [facility] XRAY FOOT 3 VIEWS MIN 93695 03/31/2018 [facility] THYROID STIMULATING HORMONE (TSH) 91954 03/31/2018 [facility] FREE T4 17073 03/31/2018 [facility] TSH 47634 03/31/2018 [facility] 12 LEAD EKG 18789 03/25/2018 [facility] FECAL OCCULT BLOOD 47009 03/16/2018 [facility] OCCULT BLOOD ICT 69159 03/16/2018 [facility] COMPREHENSIVE METABOLIC PANEL 32872 03/09/2018 [facility] HEMOGLOBIN A1C 41402 03/09/2018 [facility] COMPREHENSIVE METABOLIC PANEL(DBIL NOT INCLUDED) 08739 03/09/2018 [facility] MICROALBUMIN / CREATININE URINE RATIO 55459 03/09/2018 [facility] MICROALBUM, URINE 42296 03/09/2018 [facility] URINE CULTURE 97290 02/16/2018 [facility] POC URINE DIPSTICK, WITHOUT MICRO 82432 02/16/2018 [facility] TSH 56082 11/24/2017 [facility] CBC/DIFF 70267 11/24/2017 [facility] FERRITIN 55635 11/24/2017 [facility] Assessment and Plan No Data Provided for This Section Plan of Care Plan of Care Date Source Breast Cancer Scrn (Yearly) 02/23/2020 [facility] DM Retinal Exam (Yearly) 02/14/2020 [facility] DM HGBA1C (Yearly) 02/10/2020 [facility] DM HGBA1C (Yearly) 11/05/2019 [facility] DM Foot Exam (Yearly) 10/08/2019 [facility] Cervical Cancer Scrn (3 Yrs) 10/01/2019 [facility] IMM Influenza Seasonal Apr to September (>/=19 yrs) 04/25/2019 [facility] Colorectal Cancer Scrn Annual (FIT/FOBT) Age 50 to 75 03/16/2019 [facility] Upcoming EncountersDateTypeSpecialtyCare TeamDescription 03/10/2019 Appointment Radiology 3D imaging view as well as an ultrasound 03/10/2019 Appointment Radiology 3D imaging view as well as an ultrasound 03/13/2019 Office Visit Orthopedics 05/10/2019 Office Visit Ophthalmology Maryana King, [address] [place] [address] 05/12/2019 Lab Appointment Lab Fili Andre MD[address] [phone] (Fax) Health MaintenanceDue DateLast DoneComments Colorectal Cancer Scrn Annual (FIT/FOBT) Age 50 to 75 03/16/2019 03/16/2018, 09/29/2016 IMM Influenza Seasonal Apr to September (>/=19 yrs) 04/25/2019 03/31/2012 (Declined) Cervical Cancer Scrn (3 Yrs) 10/01/2019 09/30/2016, 05/26/2012 (Previously completed - External) DM Foot Exam (Yearly) 10/08/2019 10/07/2018, 06/10/2018, 11/01/2017, Additional history exists DM HGBA1C (Yearly) 02/10/2020 02/09/2019, 11/04/2018, 07/22/2018, Additional history exists DM Retinal Exam (Yearly) 02/14/2020 02/13/2019, 10/20/2017, 10/21/2016, Additional history exists Breast Cancer Scrn (Yearly) 02/23/2020 02/22/2019, 11/15/2017, 10/20/2016, Additional history exists 03/02/2019 [facility] Upcoming EncountersDateTypeSpecialtyCare TeamDescription 02/09/2019 Lab Appointment Lab Fili Andre MD[address] [place], [place] [address] [place], [place] [phone] w2 02/13/2019 Office Visit Family Practice Fili Andre MD[address] [place] [address] [phone] My Health Request 02/24/2019 Appointment Audiology Billie Rebolledo of [address] [phone] order#[id number]/FAP until 10/21/2019 02/24/2019 Office Visit Ent-Otolaryngology referral#[id number]/FAP until 10/21/2019 03/02/2019 Office Visit Clinical Pharmacy Lurdes Edward, [address], [place] [phone] (Fax) Health MaintenanceDue DateLast DoneComments DM Retinal Exam (Yearly) 10/20/2018 10/20/2017, 10/21/2016, 12/22/2012 Breast Cancer Scrn (Yearly) 11/15/2018 11/15/2017, 10/20/2016, 04/29/2012 Colorectal Cancer Scrn Annual (FIT/FOBT) Age 50 to 75 03/16/2019 03/16/2018, 09/29/2016 IMM Influenza Seasonal Apr to September (>/=19 yrs) 04/25/2019 03/31/2012 (Declined) Cervical Cancer Scrn (3 Yrs) 10/01/2019 09/30/2016, 05/26/2012 (Previously completed - External) DM Foot Exam (Yearly) 10/08/2019 10/07/2018, 06/10/2018, 11/01/2017, Additional history exists DM HGBA1C (Yearly) 11/05/2019 11/04/2018, 07/22/2018, 06/10/2018, Additional history exists 02/09/2019 [facility] Upcoming EncountersDateTypeSpecialtyCare TeamDescription 11/24/2018 Office Visit Clinical Pharmacy Wagner Lurdesjhon Mcconnell, [address], [place] [phone] (Fax) Arrived 12/22/2018 Office Visit Psychiatry Boo Schroeder MD[address] [facility] [address], [place] [phone] (Fax) Health MaintenanceDue DateLast DoneComments DM Retinal Exam (Yearly) 10/20/2018 10/20/2017, 10/21/2016, 12/22/2012 Breast Cancer Scrn (Yearly) 11/15/2018 11/15/2017, 10/20/2016, 04/29/2012 Colorectal Cancer Scrn Annual (FIT/FOBT) Age 50 to 75 03/16/2019 03/16/2018, 09/29/2016 IMM Influenza Seasonal Apr to September (>/=19 yrs) 04/25/2019 03/31/2012 (Declined) Cervical Cancer Scrn (3 Yrs) 10/01/2019 09/30/2016, 05/26/2012 (Previously completed - External) DM Foot Exam (Yearly) 10/08/2019 10/07/2018, 06/10/2018, 11/01/2017, Additional history exists DM HGBA1C (Yearly) 11/05/2019 11/04/2018, 07/22/2018, 06/10/2018, Additional history exists 11/24/2018 [facility] Breast Cancer Scrn (Yearly) 11/15/2018 [facility] DM Retinal Exam (Yearly) 10/20/2018 [facility] Social History Social History Date Source Tobacco UseTypesPacks/DayYears UsedDate Never Smoker Smokeless Tobacco: Never Used Tobacco Cessation: Counseling Given: No Alcohol UseDrinks/Weekoz/WeekComments No Food InsecurityAnswerDate Recorded Within the past 12 months, you worried that your food would run out before you got money to buy more. Never true 02/14/2018 Within the past 12 months, the food you bought just didn't last and you didn't have money to get more. 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 03/02/2019 [facility] Family History Value Date Source Medical HistoryRelationNameComments Asthma Brother Psychiatry Brother Heart Father Arthritis Mother Diabetes Mother Hypertension Mother Cancer Sister Thyroid Diabetes Sister Hypertension Sister Stroke Sister RelationNameStatusComments Brother Alive Brother Brother Father Alive Maternal Grandfather Maternal Grandmother Mother Paternal Grandfather Paternal Grandmother Sister Alive Sister Sister Sister Sister 03/02/2019 [facility] Medical HistoryRelationNameComments Asthma Brother Psychiatry Brother Heart Father Arthritis Mother Diabetes Mother Hypertension Mother Cancer Sister Thyroid Diabetes Sister Hypertension Sister Stroke Sister RelationNameStatusComments Brother Alive Brother Brother Father Alive Maternal Grandfather Maternal Grandmother Mother Paternal Grandfather Paternal Grandmother Sister Alive Sister Sister Sister Sister 02/09/2019 [facility] Medical HistoryRelationNameComments Asthma Brother Psychiatry Brother Heart Father Arthritis Mother Diabetes Mother Hypertension Mother Cancer Sister Thyroid Diabetes Sister Hypertension Sister Stroke Sister RelationNameStatusComments Brother Alive Brother Brother Father Alive Maternal Grandfather Maternal Grandmother Mother Paternal Grandfather Paternal Grandmother Sister Alive Sister Sister Sister Sister 11/24/2018 [facility] Advance Directives No Data Provided for This Section Functional Status No Data Provided for This Section
--- OUTSIDE RECORDS SUMMARY | 2019-03-07 14:47 | XMS REPORT | Clinical Summary ---
Author Author [facility] Organization [facility] Address Unknown Phone Unavailable Care Team Providers Care Manager Coding Name Role Phone Fili Andre MD PCP [...] sugars 351-400 - inject 10 units. Active metFORMIN (GLUCOPHAGE) Take 1 tablet 180 tablet 1 1,000 mg by mouth 2 9 tabletIndications: Type times daily II or unspecified type (with meals). diabetes mellitus with neurological manifestations, not stated as uncontrolled(250.60) Active amitriptyline (ELAVIL) 25 Take 2 180 tablet 1 mg tabletIndications: tablets by 9 Recurrent major mouth nightly depressive disorder, in at bedtime as full remission needed for Sleep. Active DULoxetine (CYMBALTA) 60 Take 1 90 capsule 1 mg delayed release capsule by 9 capsuleIndications: mouth daily. Recurrent major depressive disorder, in full remission, Generalized anxiety disorder Active insulin NPH 100 unit/mL Inject 75 140 mL 1 injectionIndications: Units under 9 Inadequately controlled the skin 2 diabetes mellitus times daily (before meals). Active lisinopril (PRINIVIL) 10 Take 1 tablet 90 tablet 1 mg tablet by mouth 9 daily. Active metoprolol succinate Take 1 tablet 90 tablet 1 (TOPROL XL) 25 mg by mouth 9 extended release daily. tabletIndications: Essential hypertension Active omeprazole (PRILOSEC) 20 Take 1 90 capsule 1 mg delayed release capsule by 9 capsuleIndications: mouth daily. Gastroesophageal reflux disease, esophagitis presence not specified Active gabapentin (NEURONTIN) Take 1 tablet 180 tablet 1 600 mg tabletIndications: by mouth 2 9 Diabetic polyneuropathy times daily. associated with diabetes mellitus due to underlying condition Active glimepiride (AMARYL) 1 mg Take 1 tablet 90 tablet 1 tabletIndications: Type 2 by mouth 9 diabetes mellitus without daily (with complication, with breakfast). long-term current use of insulin 07/22/2018 Discontinued nystatin (MYCOSTATIN) Apply to 30 g 3 100,000 unit/gram affected area 7 ointment 2 times daily. 03/20/2018 Discontinued gabapentin (NEURONTIN) Take 1 tablet 180 tablet 1 600 mg tabletIndications: by mouth 2 7 Diabetic polyneuropathy times daily. associated with diabetes mellitus due to underlying condition 03/13/2018 Discontinued omeprazole (PRILOSEC) 20 Take 1 90 capsule 1 mg delayed release capsule by 7 capsuleIndications: mouth daily. Gastroesophageal reflux disease, esophagitis presence not specified 03/16/2018 Discontinued insulin NPH 100 unit/mL Inject [...] 1 mg tablet by mouth 8 daily. 05/19/2018 Discontinued amitriptyline (ELAVIL) 25 Take 3 [...] wound 3 times daily for 7 days. 12/22/2018 Discontinued amitriptyline (ELAVIL) 25 Take 3 270 tablet 1 mg tabletIndications: tablets by 8 Recurrent major mouth nightly depressive disorder, in at bedtime as full remission needed for Sleep. 12/22/2018 Discontinued DULoxetine (CYMBALTA) 60 Take 1 90 capsule 1 mg delayed release capsule by 8 capsuleIndications: mouth daily. Recurrent major depressive disorder, in full remission, Generalized anxiety disorder 01/05/2019 Discontinued insulin NPH 100 unit/mL Inject 75 140 mL 1 injectionIndications: Units under 8 Inadequately controlled the skin 2 diabetes mellitus times daily (before meals). 11/24/2018 Discontinued metFORMIN (GLUCOPHAGE) Take 1 tablet 180 tablet 1 1,000 mg by mouth 2 8 tabletIndications: Type times daily II or unspecified type (with meals). diabetes mellitus with neurological manifestations, not stated as uncontrolled(250.60) 01/05/2019 Discontinued lisinopril (PRINIVIL) 10 Take 1 tablet 90 tablet 1 mg tablet by mouth 8 daily. 01/05/2019 Discontinued metoprolol succinate Take 1 tablet 90 tablet 1 (TOPROL XL) 25 mg by mouth 9 extended release daily. tabletIndications: Essential hypertension 01/05/2019 Discontinued gabapentin (NEURONTIN) Take 1 tablet 180 tablet 1 600 mg tabletIndications: by mouth 2 9 Diabetic polyneuropathy times daily. associated with diabetes mellitus due to underlying condition 10/04/2018 Discontinued linagliptin (TRADJENTA) 5 Take 1 tablet 30 tablet 1 mg tablet by mouth 9 daily. 01/05/2019 Discontinued omeprazole (PRILOSEC) 20 Take 1 90 capsule 1 mg delayed release capsule by 9 capsuleIndications: mouth daily. Gastroesophageal reflux disease, esophagitis presence not specified 10/17/2018 nitrofurantoin Take 1 40 capsule 0 (MACRODANTIN) 100 mg capsule by 9 capsuleIndications: Acute mouth 4 times UTI (urinary tract daily for 10 infection) days. 01/05/2019 Discontinued benzonatate (TESSALON Take 1-2 30 capsule 0 PERLES) 100 mg capsules by 9 capsuleIndications: Viral mouth every 8 URI with cough hours as needed for cough. 01/05/2019 Discontinued loratadine (CLARITIN) 10 Take 1 tablet 30 tablet 0 mg tabletIndications: by mouth 9 Viral URI with cough, daily. Nasal congestion 01/05/2019 Discontinued fluticasone propionate Use 2 Sprays 16 g 0 (FLONASE ALLERGY RELIEF) in each 9 50 mcg/actuation nasal nostril sprayIndications: Viral daily. URI with cough, Nasal congestion 01/05/2019 Discontinued linagliptin (TRADJENTA) 5 Take 1 tablet 30 tablet 1 11/24/201 mg tablet by mouth 9 daily. 02/13/2019 Discontinued linagliptin (TRADJENTA) 5 Take 1 tablet 90 tablet 0 01/05/201 mg tablet by mouth 9 daily. 02/13/2019 tropicamide (MYDRIACYL) Instill 1 15 mL 0 0.5 % ophthalmic Drop in each 9 solutionIndications: Type eye once as 2 diabetes mellitus needed for up without complication, to 1 dose with long-term current (for poor use of insulin retina scan image). Active Problems Problem Noted Date Inadequately controlled [...] Encounters Care Team Description Date Type Specialty Lurdes Edward RPH Inadequately controlled diabetes mellitus (Primary Dx) 03/02/2019 Office Visit Clinical Pharmacy 03/02/2019 Travel Ebonie Vang Abnormal Diagnostic F/u (Left message for patient to cantact me regarding additional views) 02/24/2019 Telephone Radiology Fili Andre MD Results 02/23/2019 Telephone Family Practice Fili Andre MD 02/22/2019 Ancillary Radiology Procedure Fili Andre MD Type 2 diabetes mellitus without complication, with long-term current use of insulin 02/13/2019 Ancillary Ophthalmology Procedure Fili Andre MD Type 2 diabetes mellitus without complication, with long-term current use of insulin (Primary Dx); Anemia, unspecified type; Follow up 02/13/2019 Office Visit Family Practice 02/09/2019 Travel Lurdes Edward RPH Inadequately controlled diabetes mellitus (Primary Dx); Essential hypertension; Gastroesophageal reflux disease, esophagitis presence not specified; Diabetic polyneuropathy associated with diabetes mellitus due to underlying condition 01/05/2019 Office Visit Clinical Pharmacy 01/05/2019 Travel Boo Schroeder MD Recurrent major depressive disorder, in full remission; Generalized anxiety disorder 12/22/2018 Office Visit Psychiatry Lurdes Edward, [facility] Type II or unspecified type diabetes mellitus with neurological manifestations, not stated as uncontrolled(250.60) 11/24/2018 Office Visit Clinical Pharmacy 11/24/2018 Travel 11/02/2018 Travel Carmelita Dasilva NP Viral URI with cough (Primary Dx); Nasal congestion 10/31/2018 Same Day Family Practice 10/31/2018 Travel Ai Austin PA Acute UTI (urinary tract infection) (Primary Dx); Dysuria; DM (diabetes mellitus), secondary 10/07/2018 Office Visit Family Practice Fili Andre MD Cantieri, Tara Lynn [facility] Inadequately controlled diabetes mellitus (Primary Dx); Hyperlipidemia, unspecified hyperlipidemia type 10/04/2018 Office Visit Clinical Pharmacy Fili Andre MD Gastroesophageal reflux disease, esophagitis presence not specified 10/04/2018 Refill Family Practice Lindsey Malik DPM Diabetes mellitus type [...] unspecified laterality (Primary Dx) 09/14/2018 Orders Only Family Practice Verónica Ordaz RN Information Only 09/14/2018 Telephone Family Practice Dilip Godoy MD Left foot pain 09/06/2018 Orders Only Orthopedics Fiil Andre MD Left foot pain 09/05/2018 Hospital [...] Pharmacy Fili Andre MD Results 08/04/2018 Telephone Family Practice Fili Andre MD Follow up (Primary Dx) 08/04/2018 Orders Only [facility] 08/04/2018 Travel Fili Adnre MD Results 08/03/2018 Telephone [facility] Fili Andre MD Results 07/24/2018 Telephone [facility] Fili Andre MD Hernia of abdominal wall (Primary Dx); Influenza vaccination declined by patient; Type 2 diabetes mellitus without complication, with long-term current use of insulin; Left foot pain; Fatty liver; Physical exam, annual 07/22/2018 Office Visit Family Practice 07/20/2018 Travel Lurdes Edward RPH Inadequately [...] Communication (response to email ) 05/09/2018 Telephone Family Practice Fili Andre MD 04/25/2018 Hospital Cardiology Encounter 04/01/2018 Ancillary Radiology Procedure Fili Andre MD 03/31/2018 Ancillary Radiology Procedure Fili Andre MD Palpitation (Primary Dx); Callus; Open wound; Bunion; Left foot pain 03/24/2018 Office Visit Family Practice Fili Andre MD Diabetic polyneuropathy associated with diabetes mellitus due to underlying condition 03/20/2018 Refill Family Practice Lurdes Edward RPH Inadequately controlled diabetes mellitus 03/16/2018 Office Visit Clinical Pharmacy Fili Andre MD Gastroesophageal reflux disease, esophagitis presence not specified 03/13/2018 Refill [facility] Lurdes Edward RPH Inadequately controlled diabetes mellitus 03/08/2018 Orders Only Clinical Pharmacy after 03/01/2018 Immunizations Name Administration Dates Next Due Herpes Zoster Vaccine In 05/06/2017 [...] Never Used Tobacco Cessation: Counseling Given: No Drinks/Week oz/Week Comments Alcohol Use No Food Insecurity Answer Date Recorded Within the past 12 months, you worried that your Never true 02/14/2018 food would run out before you got money to buy more. Within the past 12 months, the food you bought Never true 02/14/2018 just didn't last and you didn't have money to get more. Sex Assigned at Date Recorded Not on file Industry Job Start Date Occupation Not on file Not on file Not on file Travel End Travel History Travel Start No recent travel history available. Last Filed Vital Signs Reading Time Taken Comments Vital Sign 114/38 03/02/2019 7:45 AM CDT Blood Pressure 63 03/02/2019 7:45 AM CDT Pulse 36.7 C (98 F) 03/02/2019 7:45 AM CDT Temperature 16 03/02/2019 7:45 AM CDT Respiratory Rate 99% 10/31/2018 8:38 AM CDT Oxygen Saturation - - Inhaled Oxygen Concentration 89.8 kg (198 lb) 03/02/2019 7:45 AM CDT Weight 162.6 cm (5' 4") 03/02/2019 7:45 AM CDT Height 33.99 03/02/2019 7:45 AM CDT Body Mass Index Plan of Treatment Care Team Description Date Type Specialty 3D imaging view as well as an ultrasound 03/10/2019 Appointment Radiology 3D imaging view as well as an ultrasound 03/10/2019 Appointment Radiology 03/13/2019 Office Visit Orthopedics Fernando Maryana, OD [address] [place] [address] 05/10/2019 Office Visit Ophthalmology Fili Andre MD [address] [place] [id number] 05/12/2019 Lab Appointment Lab Health Maintenance Due Date Last Done Comments Colorectal Cancer Scrn 03/16/2019 03/16/2018, 09/29/2016 Annual [...] 10/21/2016, Additional history exists Breast Cancer Scrn 02/23/2020 02/22/2019, 11/15/2017, 10/20/2016, (Yearly) Additional history exists Goals Goal Patient Associated Recent Progress Patient-Stat Author Goal Type Problems ed? LOWER BLOOD GLUCOSE Lifestyle No Reinaldo Love Increase Physical Activity Lifestyle No Anirudh Navarrete RN Weight (lb) < 200 lb (90.7 kg) Weight 89.8 kg (198 lb) Carine Rosario (03/02/2019 7:45 AM J CDT) Procedures Comments Procedure Name Priority Date/Time Associated Diagnosis MAMMOGRAM BILAT SCREEN Routine 02/22/2019 Follow up DIGITAL 10:02 AM CDT OPHTHALMOLOGY RETINAL Routine 02/13/2019 Type 2 diabetes mellitus SCAN 11:27 AM CDT without complication, with long-term current use of insulin COMPREHENSIVE METABOLIC Routine 02/09/2019 Inadequately controlled PANEL 9:58 AM CDT diabetes mellitus CBC (WITHOUT Routine 02/09/2019 Inadequately controlled DIFFERENTIAL) 9:58 AM CDT diabetes mellitus HEMOGLOBIN A1C Routine 02/09/2019 Inadequately controlled 9:58 AM CDT diabetes mellitus LIPID PROFILE Routine 11/04/2018 Hyperlipidemia, 8:47 AM CDT unspecified hyperlipidemia type COMPREHENSIVE METABOLIC Routine 11/04/2018 Inadequately controlled PANEL 8:47 AM CDT diabetes mellitus HEMOGLOBIN A1C Routine 11/04/2018 Inadequately controlled 8:47 AM CDT diabetes mellitus DIABETIC FOOT EXAM Routine 10/07/2018 DM (diabetes mellitus), 10:47 AM CDT secondary URINE CULTURE Routine 10/07/2018 Dysuria 10:21 AM CDT POC URINE DIPSTICK, Routine 10/07/2018 Dysuria WITHOUT MICRO XRAY FOOT 3 VIEWS MIN Routine 09/30/2018 Closed displaced fracture 8:10 AM [employer] of second metatarsal bone of left foot with delayed healing, subsequent encounter XRAY FOOT 3 VIEWS MIN Routine 09/05/2018 Left foot pain 8:35 AM [employer] XRAY FOOT 3 VIEWS MIN Routine 08/04/2018 Follow up 8:46 AM [employer]GER LIVER PROFILE Routine 08/04/2018 Elevated LFTs 8:05 AM [employer]NAGER HEPATITIS PANEL Routine 08/04/2018 Elevated LFTs 8:05 AM [employer]NAGER COMPREHENSIVE METABOLIC Routine 07/22/2018 Fatty liver PANEL 3:40 PM [employer] MANAGER VIT D, 25-HYDROXY Routine 07/22/2018 Left foot pain 3:40 PM [employer]GER HEMOGLOBIN A1C Routine 07/22/2018 Type 2 diabetes mellitus 3:40 PM [employer]GER without complication, with long-term current use of insulin XRAY FOOT 3 VIEWS MIN STAT 06/10/2018 Closed displaced fracture 11:04 AM [employer] MANAGER of second metatarsal bone of left foot, initial encounter DIABETIC FOOT EXAM Routine 06/10/2018 Diabetes mellitus type 2 10:18 AM [employer]GER with neurological manifestations HEMOGLOBIN A1C Routine 06/10/2018 Inadequately controlled 10:02 AM [employer] diabetes mellitus 24 HOUR HOLTER MONITOR Routine 04/25/2018 Palpitation 10:01 AM CDT U/S ABDOMEN Routine 04/01/2018 Elevated LFTs 8:05 AM CDT XRAY FOOT 3 VIEWS MIN Routine 03/31/2018 Callus 8:21 AM CDT Open wound Bunion Left foot pain FREE T4 Routine 03/31/2018 Palpitation 8:13 AM CDT THYROID STIMULATING Routine 03/31/2018 Palpitation HORMONE (TSH) 8:13 AM CDT 12 LEAD EKG Routine 03/24/2018 Palpitation 3:54 PM CDT FECAL OCCULT BLOOD Routine 03/16/2018 Essential hypertension 11:56 AM CDT Type 2 diabetes mellitus without complication, with long-term current use of insulin Elevated LFTs HEMOGLOBIN A1C Routine 03/08/2018 Inadequately controlled 3:48 PM CDT diabetes mellitus COMPREHENSIVE METABOLIC Routine 03/08/2018 Inadequately controlled PANEL 3:48 PM CDT diabetes mellitus MICROALBUMIN / CREATININE Routine 03/08/2018 Inadequately controlled URINE RATIO 3:44 PM CDT diabetes mellitus after 03/01/2018 Results * MAMMOGRAM BILAT SCREEN DIGITAL (02/22/2019 10:02 AM CDT) Specimen Impressions Performed At IMPRESSION: INCOMPLETE: NEEDS ADDITIONAL IMAGING EVALUATION [facility] The 2.5 cm mass in the right breast appears indeterminate.3D imaging view as well as an ultrasound are recommended.Please place a Referral to [facility] code [id number]. I have reviewed the study and agree with the findings in the report. This document has been electronically signed. Macrina Lynne M.D. to,e/:02/22/2019 12:10:48 Workers Compensation Examiner: Ms. Sailaja Deras RT(R)(M), [facility] letter sent: Additional Imaging Needed Mammogram BI-RADS: 0 Indeterminate G0202 z12.31 Narrative Performed At #[id number] - MAMMOGRAM BILAT SCREEN DIGITAL [facility] BILATERAL DIGITAL SCREENING MAMMOGRAM WITH CAD: 02/22/2019 CLINICAL: Screening for malignancy. Comparison is made to exams dated:04/29/2012, 10/20/2016, and 11/15/2017 [facility]. There are scattered fibroglandular elements in both breasts that could obscure a lesion on mammography. Current study was also evaluated with a Computer Aided Detection (CAD) system. There is a 2.5 cm mass in the right breast at 11 o'clock posterior depth.This is increased in size. No other significant masses, calcifications, or other findings are seen in either breast.There are benign calcifications in both breasts. Procedure Note Interface, Rad/Mammog In - 02/22/2019 1:30 PM CDT #[id number] - MAMMOGRAM BILAT SCREEN DIGITAL BILATERAL DIGITAL SCREENING MAMMOGRAM WITH CAD: 02/22/2019 CLINICAL: Screening for malignancy. Comparison is made to exams dated: 04/29/2012, 10/20/2016, and 11/15/2017 [facility]. There are scattered fibroglandular elements in both [...] are recommended. Please place a Referral to [facility] code [id number]. I have reviewed the study and agree with the findings in the report. This document has been electronically signed. Macrina Lynne M.D. to,lse/:02/22/2019 12:10:48 Workers Compensation Examiner: Ms. Sailaja Deras RT(R)(M), [facility] letter sent: Additional Imaging Needed Mammogram BI-RADS: 0 Indeterminate G0202 z12.31 Performing Organization Address City/State/[place] Phone Number [facility] * OPHTHALMOLOGY RETINAL SCAN (02/13/2019 11:27 AM CDT) RETINAL NORMAL IRIS SCAN-FINAL RESULT Right Diabetic None IRIS Retinopathy Right Macular None IRIS Edema Right Other None IRIS Suspected Conditions Right Image Gradeable Image IRIS Quality Left Diabetic None IRIS Retinopathy Left Macular None IRIS Edema Left Other None IRIS Suspected Conditions Left Image Gradeable Image IRIS Quality Specimen Narrative Performed At Retinal Study Result for GISELLE LANDAVERDE CYNTHIA, a 58 y/o, F (: 1960, ) presented to [facility] on 02-13-2019 for a retinal imaging study of the left and right eyes. Based on the findings of the study, the following is recommended for GISELLE LANDAVERDE Normal Scan: Please advise the patient to return for another scan in 1 year. Interpreting Provider's Comments:No comments provided Right Eye Findings: Normal Result.Negative for Diabetic Retinopathy. Left Eye Findings: Normal Result.Negative for Diabetic Retinopathy. This result was electronically signed by Hayes Gallegos MD, , Taxonomy: [id number] on 02-13-2019 05:01:30 [facility] time. NOTE:Any pathology noted on this diabetic retinal evaluation should be confirmed by an appropriate ophthalmic examination. Performing Organization Address City/State/[place] Phone Number IRIS * HEMOGLOBIN A1C (02/09/2019 9:58 AM CDT) Only the most recent of 5 results within the time period is included. Hemoglobin A1c 7.6 % [facility] Estimated 171 (H) 70 - 110 mg/dL [facility] Average Glucose [facility] Specimen Blood Performing Organization Address [facility]/[place] Phone Number [facility] [address] [place] [address] * COMPREHENSIVE METABOLIC PANEL (02/09/2019 9:58 AM CDT) Only the most recent of 4 results within the time period is included. Sodium 138 136 - 145 mmol/L [facility] Potassium 4.8 3.5 - 5.1 mmol/L [facility] Chloride 96 (L) 98 - 107 mmol/L [facility] CO2 32 (H) 21 - 31 mmol/L [facility] Glucose 165 (H) 70 - 110 mg/dL [facility] Calcium, Total 9.7 8.6 - 10.3 mg/dL [facility] Urea Nitrogen 11.0 7.0 - 25.0 mg/dL [facility] Creatinine 0.8 0.6 - 1.2 mg/dL [facility] Alkaline 63 34 - 104 U/L [facility] Phosphatase [facility] ALT 37 7 - 52 U/L [facility] AST 31 13 - 39 U/L [facility] Total Bilirubin 0.4 0.2 - 1.2 mg/dL [facility] Total Protein 7.1 6.0 - 8.3 g/dL [facility] GFR, Estimated 74 (L) >=90 mL/min/1.73 m2 [facility] Albumin 3.9 3.7 - 5.3 g/dL [facility] Anion Gap 10 5 - 16 mmol/L [facility] Specimen Blood Performing Organization Address [facility]/[place] Phone Number [facility] [address] [place] [address] * CBC (02/09/2019 9:58 AM CDT) WBC 8.6 4.5 - 11.0 K/uL [facility] RBC 4.04 (L) 4.20 - 5.40 M/uL [facility] Hemoglobin 11.2 (L) 12.0 - 16.0 g/dL [facility] Hematocrit 36.5 (L) 37.0 - 47.0 % [facility] MCV 90.3 82.0 - 92.0 fL [facility] MCH 27.7 27.0 - 32.0 pg [facility] MCHC 30.7 (L) 32.0 - 36.0 g/dL [facility] RDW 47.2 (H) 36.4 - 46.3 fL [facility] Platelet 225 150 - 400 K/uL [facility] Mean Platelet 11.6 9.4 - 12.4 fL [facility] Volume [facility] Percent NRBC 0.0 % [facility] Specimen Blood Performing Organization Address [facility]/[place] Phone Number [facility] [address] [place] [address] * LIPID PROFILE (11/04/2018 8:47 AM CDT) [facility] Cholesterol 186 mg/dL [facility] Comment: 1 REFERENCE RANGE: Desirable: <200 mg/dL Borderline: 200-240 mg/dL High Risk: >240 mg/dL Triglyceride 135 <150 mg/dL [facility] Comment: 1 REFERENCE RANGE: Normal: <150 mg/dL Borderline High: 150-199 mg/dL High: 200-499 mg/dL Very High: >vm=543 mg/dL HDL 44 mg/dL [facility] Comment: 1 Increased CHD risk: <40 mg/dL Decreased CHD risk: >60 mg/dL LDL 115 mg/dL [facility] Comment: 1 REFERENCE RANGE: Optimal: <100 mg/dL Near Optimal: 100-129 mg/dL Borderline High: 130-159 mg/dL High: 160-189 mg/dL Very High: >lf=585 mg/dL Specimen Blood Performing Organization Address [facility]/[place] Phone Number [facility] 1 * DIABETIC FOOT EXAM (10/07/2018 [...] * URINE CULTURE (10/07/2018 10:21 AM CDT) Spec Urine [facility] Description Order Comments None [facility] Culture >100,000 colonist/ml [facility] Streptococcus beta hemolytic, group B Report Status Final 10/08/2018 [facility] Specimen Urine - Voided, urine Performing Organization Address City/State/Zipcode Phone Number [facility] * POC URINE DIPSTICK, WITHOUT MICRO (10/07/2018) Color POC mi - - - Clarity POC cloudy - - - Spec [place] 1.020 1.005 - 1.030 POC pH POC [...] FOOT 3 VIEWS MIN (09/30/2018 8:10 AM [employer] MANAGER) Only the most recent of 5 results within the time period is included. Specimen Impressions Performed At IMPRESSION: SMS 1.Progressed but [...] Interface, Rad/Mammog In - 09/30/2018 9:29 AM [employer] MANAGER Left foot x-rays - 3 view(s) HISTORY: [...] DO, 09/30/2018 9:24 AM Performing Organization Address [facility]/[place] Phone Number [facility] * LIVER PROFILE (08/04/2018 8:05 AM [employer] MANAGER) Protein, Total, 7.0 6.0 - 8.3 g/dL [facility] Serum 1 Albumin 4.1 3.7 - 5.3 g/dL [facility] 1 Bilirubin, 0.3 0.2 - 1.2 mg/dL [facility] Total 1 Alkaline 60 34 - 104 U/L [facility] Phosphatase, S 1 AST (SGOT) 44 (H) 13 - 39 U/L [facility] 1 ALT 53 (H) 7 - 52 U/L [facility] 1 D Bilirubin <0.0 (L) 0.0 - 0.2 mg/dL [facility] 1 Specimen Blood Performing Organization Address [facility]/[place] Phone Number [facility] 1 * HEPATITIS PANEL (08/04/2018 8:05 AM [employer] MANAGER) HCV IgG Negative NEG [facility] 3 HBsAg Negative NEG [facility] 3 HAV, IgM Negative NEG [facility] 3 HBcAb, IgM Negative NEG BT [facility] 3 Specimen Blood Performing Organization Address [facility]/[place] Phone Number [facility] 3 * VIT D, 25-HYDROXY (07/22/2018 3:40 PM [employer] MANAGER) Vit D, 19.7 (L) 30 - 100 ng/mL BT DIAGNOSTIC 25-Hydroxy Comment: IMMUNOLOGY Vitamin D deficiency has been defined by the [place] of [employer] and Endocrine Society guideline as a level of serum 25-OH Vitamin D less than 20 ng/mL. The Endocrine Society further defines Vitamin D insufficiency as a level between 21 and 29 ng/mL and sufficiency as a level between 30 and 100 ng/mL. Specimen Performing Organization Address [email or web address] Phone Number [facility] BT DIAGNOSTIC IMMUNOLOGY * 24 HOUR HOLTER MONITOR (04/25/2018 10:01 AM CDT) 24 HOUR HOLTER SMS MONITOR [facility] Test Date:2018-04-25 Pat Name: GISELLE LANDAVERDE Department: Room: Gender: F 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: ASHLEY JOYCE :1960-1 Requested By: Order Number: Wan ramsay MD: Lexy Kessler M.D. Interpretive Statements PREDOMINANT RHYTHM: SINUS HR RANGE: 56-129 BPM LONGEST R-R INTERVAL: 1.2 SEC (4:34 AM) NO PACS NO PVCS NO ISCHEMIC CHANGES Electronically Signed On 04-27-18 14:28:49 CDT by Lexy Kessler M.D. Specimen Performing Organization Address City/State/Zipcode Phone Number SMS * U/S ABDOMEN (04/01/2018 8:05 AM CDT) Specimen Impressions Performed At IMPRESSION: SMS Hepatomegaly with [...] MD, 04/01/2018 9:05 AM Performing Organization Address City/[facility]/[place] Phone Number SMS * TSH (03/31/2018 8:13 AM CDT) TSH 1.47 0.57 - 3.74 uIU/mL BT MAIN-STATION 1 Specimen Blood Performing Organization Address [facility]/[place] Phone Number JOHNYS BT MAIN-STATION 1 * FREE T4 (03/31/2018 8:13 AM CDT) Free T4 0.69 0.61 - 1.18 ng/dl BT MAIN-STATION Comment: 1 females: 1st Trimester-0.52-1.10 ng/dL 2nd Trimester=0.45-0.99 ng/dL 3rd Trimester=0.48-0.95 ng/dL Specimen Blood Performing Organization Address [facility]/[place] Phone Number RADHA BT MAIN-STATION 1 * 12 LEAD EKG (03/24/2018 3:54 PM CDT) 12 LEAD EKG FOR [facility] Test Date:2018-03-24 Pat Name: GISELLE LANDAVERDE Department: Room: Gender: F 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: 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 :[id number] 0-09 Requested By: Order Number: Wan ramsay MD: Hailey Flowers Measurements Intervals [place] Rate: 73 P:44 ID: 145 QRS: 55 QRSD: 96 T:38 QT: 364 QTc:401 Interpretive Statements SINUS RHYTHM Electronically Signed On 03-24-18 17:37:01 CDT by Hailey Flowers Specimen Performing Organization Address [facility]/[place] Phone Number SMS * OCCULT BLOOD ICT (03/16/2018 11:56 AM CDT) Occult Blood Negative [facility]G [facility] ICT Specimen Stool Performing Organization Address [facility]/[place] Phone Number [facility] * MICROALBUM, URINE (03/08/2018 3:44 PM CDT) Microalbum, 1.8 0.0 - 29.0 mg/dL BT MAIN-STATION Random 1 Creatinine, 40.6 20 - 320 mg/dL BT MAIN-STATION Urine 1 Urine 44.3 (H) 0 - 29 mg/g UCR BT MAIN-STATION Microalbumin Comment: 1 To minimize intra-individual variation, analysis of three random urine samples collected over the course of a week is recommended. Specimen Performing Organization Address [facility]/[place] Phone Number JOHNYS BT MAIN-STATION 1 after 03/01/2018 Insurance Type Payer Benefit Subscriber ID Effective Phone Address Plan / Dates Group [employer] [place] xxxxxx 2018- [phone] [address] [employer] [employer]ILY 2019 [id number] PLANN[place], [place] [address] [facility] PLAN FINANCIAL xxxxxx 2018- [phone] [id number] [place] [address]
--- OUTSIDE RECORDS SUMMARY | 2019-03-07 14:47 | XMS REPORT | Clinical Summary ---
Author Author [facility] Organization [facility] Address Unknown Phone Unavailable Care Team Providers Care Site Monitor Name Role Phone Fili Andre MD PCP [...] diabetes mellitus due to underlying condition Active linagliptin (TRADJENTA) 5 Take 1 tablet 90 tablet 0 mg tablet by mouth 9 daily. 07/22/2018 Discontinued nystatin (MYCOSTATIN) Apply to 30 [...] Gastroesophageal reflux disease, esophagitis presence not specified 02/24/2018 Discontinued amitriptyline (ELAVIL) 25 Take 3 270 tablet 0 09/09/201 mg tabletIndications: tablets by 8 Recurrent major mouth nightly depressive disorder, in at bedtime as full remission needed for Sleep. 02/24/2018 Discontinued hydrOXYzine (ATARAX) 25 Take 1 tablet 90 tablet 0 09/09/201 mg tabletIndications: by mouth 8 Generalized anxiety daily as disorder needed for Anxiety. 02/25/2018 Discontinued metoprolol succinate Take 1 tablet 180 tablet 1 (TOPROL XL) 50 mg by mouth 8 extended release daily. tabletIndications: Essential hypertension 03/16/2018 Discontinued insulin NPH 100 unit/mL Inject [...] mg tablet by mouth 9 daily. Active Problems Problem Noted Date Inadequately controlled [...] Encounters Care Team Description Date Type Specialty 02/09/2019 Travel Lurdes Edward Jaylin Inadequately controlled diabetes mellitus (Primary Dx); Essential hypertension; Gastroesophageal reflux disease, esophagitis presence not specified; Diabetic polyneuropathy associated with diabetes mellitus due to underlying condition 01/05/2019 Office Visit Clinical Pharmacy 01/05/2019 Travel Boo Schroeder MD Recurrent major depressive disorder, in full remission; Generalized anxiety disorder 12/22/2018 Office Visit Psychiatry Lurdes Edward, [facility] Type II or unspecified type diabetes mellitus [...] Practice Fili Andre MD Cantieri, Tara Lynn [facility] Inadequately controlled diabetes mellitus (Primary Dx); Hyperlipidemia, unspecified hyperlipidemia type 10/04/2018 Office Visit Clinical Pharmacy Fili Andre MD Gastroesophageal reflux disease, esophagitis presence not specified 10/04/2018 Refill [facility] Lindsey Malik DPM Diabetes mellitus [...] unspecified laterality (Primary Dx) 09/14/2018 Orders Only [facility] Verónica Ordaz RN Information Only 09/14/2018 Telephone [facility] Dilip Godoy MD Left foot pain [...] Pharmacy Fili Andre MD Results 08/04/2018 Telephone [facility] Fili Andre MD Follow up (Primary Dx) 08/04/2018 Orders Only [facility] 08/04/2018 Travel Fili Andre MD Results 08/03/2018 Telephone [facility] Fili Andre MD Results 07/24/2018 Telephone [facility] Fili Andre MD Hernia of abdominal wall (Primary Dx); Influenza vaccination declined by patient; Type 2 diabetes mellitus without complication, with long-term current use of insulin; Left foot pain; Fatty liver; Physical exam, annual 07/22/2018 Office Visit [facility] 07/20/2018 Travel Lurdes Edward RPH [...] Communication (response to email ) 05/09/2018 Telephone [facility] Fili Andre MD 04/25/2018 Hospital Cardiology Encounter 04/01/2018 Ancillary Radiology Procedure Fili Andre MD 03/31/2018 Ancillary Radiology Procedure Fili Andre MD Palpitation (Primary Dx); Callus; Open wound; Bunion; Left foot pain 03/24/2018 Office Visit Family Practice Fili Andre MD Diabetic polyneuropathy associated with diabetes mellitus due to underlying condition 03/20/2018 Refill [facility] Lurdes Edward RPH Inadequately controlled diabetes mellitus 03/16/2018 Office Visit Clinical Pharmacy Fili Andre MD Gastroesophageal reflux disease, esophagitis presence not specified 03/13/2018 Refill Family Practice Lurdes Edward RPH Inadequately [...] anxiety disorder 02/24/2018 Office Visit Psychiatry Carmelita Dasilva NP Urinary tract infection without hematuria, site unspecified (Primary Dx); Dysuria 02/15/2018 Same Day [facility] Lurdes Edward [facility] Paz Batres Inadequately controlled diabetes mellitus (Primary Dx) 02/14/2018 Office Visit Clinical Pharmacy after 02/08/2018 Immunizations Name Administration Dates Next Due Herpes [...] Signs Reading Time Taken Comments Vital Sign 121/57 01/05/2019 8:11 AM CDT Blood Pressure 73 01/05/2019 8:11 AM CDT Pulse 36.8 C (98.2 F) 01/05/2019 8:11 AM CDT Temperature 18 01/05/2019 8:11 AM CDT Respiratory Rate 99% 10/31/2018 8:38 AM CDT Oxygen Saturation - - Inhaled Oxygen Concentration 90.7 kg (200 lb) 01/05/2019 8:11 AM CDT Weight 162.6 cm (5' 4") 01/05/2019 8:11 AM CDT Height 34.33 01/05/2019 8:11 AM CDT Body Mass Index Plan of Treatment Care Team Description Date Type Specialty Fili Andre MD [address] [place] [id number] 02/09/2019 Lab Appointment Lab Fili Andre MD [address] [place] [id number] My Health Request 02/13/2019 Office Visit Family Practice Aron Rebolledo Department of Otolaryngology [address] [place] [address] order#[id number]/FAP until 10/21/2019 02/24/2019 Appointment Audiology referral#[id number]/FAP until 10/21/2019 02/24/2019 Office Visit Ent-Otolaryngology Lurdes Edward, [facility] [address] [place] [address] [phone] 03/02/2019 Office Visit Clinical Pharmacy Health Maintenance Due Date Last Done Comments [...] (lb) < 200 lb (90.7 kg) Weight 90.7 kg (200 lb) No Carine Ohara (01/05/2019 8:11 AM J CDT) Procedures Comments Procedure Name [...] Routine 09/30/2018 Closed displaced fracture 8:10 AM BROKERAGE COORDINATOR of second metatarsal bone of left foot with delayed healing, subsequent encounter XRAY FOOT 3 VIEWS MIN Routine 09/05/2018 Left foot pain 8:35 AM BROKERAGE COORDINATOR XRAY FOOT 3 VIEWS MIN Routine 08/04/2018 Follow up 8:46 AM BROKERAGE COORDINATOR LIVER PROFILE Routine 08/04/2018 Elevated LFTs 8:05 AM BROKERAGE COORDINATOR HEPATITIS PANEL Routine 08/04/2018 Elevated LFTs 8:05 AM BROKERAGE COORDINATOR COMPREHENSIVE METABOLIC Routine 07/22/2018 Fatty liver PANEL 3:40 PM BROKERAGE COORDINATOR VIT D, 25-HYDROXY Routine 07/22/2018 Left foot pain 3:40 PM BROKERAGE COORDINATOR HEMOGLOBIN A1C Routine 07/22/2018 Type 2 diabetes mellitus 3:40 PM BROKERAGE COORDINATOR without complication, with long-term current use of insulin XRAY FOOT 3 VIEWS MIN STAT 06/10/2018 Closed displaced fracture 11:04 AM BROKERAGE COORDINATOR of second metatarsal bone of left foot, initial encounter DIABETIC FOOT EXAM Routine 06/10/2018 Diabetes mellitus type 2 10:18 AM BROKERAGE COORDINATOR with neurological manifestations HEMOGLOBIN A1C Routine 06/10/2018 Inadequately controlled 10:02 AM BROKERAGE COORDINATOR diabetes mellitus 24 HOUR HOLTER MONITOR Routine [...] URINE RATIO 3:44 PM CDT diabetes mellitus URINE CULTURE Routine 02/15/2018 Urinary tract infection 5:23 PM CDT without hematuria, site unspecified POC URINE DIPSTICK, Routine 02/15/2018 Dysuria WITHOUT MICRO 4:50 PM CDT after 02/08/2018 Results * HEMOGLOBIN A1C (11/04/2018 8:47 AM [...] 70 - 110 mg/dL BT MAIN-STATION 1 Alkaline 68 34 - 104 U/L BT MAIN-STATION Phosphatase, S 1 Potassium 4.5 3.5 - 5.1 mmol/L BT MAIN-STATION 1 Sodium 138 136 - 145 mmol/L BT MAIN-STATION 1 ALT 49 7 - 52 U/L BT MAIN-STATION 1 AST (SGOT) 47 (H) 13 - 39 U/L BT MAIN-STATION 1 BUN 12 7 - 25 mg/dL BT MAIN-STATION 1 Bilirubin, 0.3 0.2 - 1.2 mg/dL BT MAIN-STATION Total 1 Protein, Total, 7.2 6.0 - 8.3 g/dL BT MAIN-STATION Serum 1 GFR, Estimated >60 mL/min/1.73 m2 BT MAIN-STATION 1 eGFR If Africn >60 mL/min/1.73 m2 BT MAIN-STATION Am 1 Anion Gap 9 BT MAIN-STATION 1 Specimen Blood Performing Organization Address [facility] Phone Number MISYS BT MAIN-STATION 1 * LIPID PROFILE (11/04/2018 8:47 AM CDT) Cholesterol 186 mg/dL BT MAIN-STATION Comment: 1 REFERENCE RANGE: Desirable: <200 mg/dL Borderline: 200-240 mg/dL High Risk: >240 mg/dL Triglyceride 135 <150 mg/dL BT MAIN-STATION Comment: 1 REFERENCE RANGE: Normal: <150 mg/dL Borderline High: 150-199 mg/dL High: 200-499 mg/dL Very High: >qz=933 mg/dL HDL 44 mg/dL BT MAIN-STATION Comment: 1 Increased CHD risk: <40 mg/dL Decreased CHD risk: >60 mg/dL LDL 115 mg/dL BT MAIN-STATION Comment: 1 REFERENCE RANGE: Optimal: <100 mg/dL Near Optimal: 100-129 mg/dL Borderline High: 130-159 mg/dL High: 160-189 mg/dL Very High: >wv=118 mg/dL Specimen Blood Performing Organization Address [facility] Phone Number MISYS BT MAIN-STATION 1 * [...] Urine - Voided, urine Performing Organization Address [facility]/Zipcode Phone Number MISYS BT MICROBIOLOGY * POC URINE DIPSTICK, WITHOUT MICRO (10/07/2018) Only the most recent of 2 results within the time period is included. Color POC mi - - - Clarity POC cloudy - - - Spec [place] 1.020 1.005 - 1.030 POC pH POC [...] FOOT 3 VIEWS MIN (09/30/2018 8:10 AM BROKERAGE COORDINATOR) Only the most recent of 5 results [...] At Left foot x-rays - 3 view(s) [facility] HISTORY:f/u 8 week xray left foot 2nd met COMPARISON: Left foot x-rays to 06/14/2019 DISCUSSION: None. Procedure Note Interface, Rad/Mammog In - 09/30/2018 9:29 AM BROKERAGE COORDINATOR Left foot x-rays - 3 view(s) HISTORY: [...] in this report. Signed By: John Evans DO 09/30/2018 9:24 AM Performing Organization Address City/State/Zipcode Phone Number [facility] * LIVER PROFILE (08/04/2018 8:05 AM BROKERAGE COORDINATOR) Protein, Total, 7.0 6.0 - 8.3 g/dL [...] 1 Specimen Blood Performing Organization Address [facility] Phone Number [facility] * HEPATITIS PANEL (08/04/2018 8:05 AM BROKERAGE COORDINATOR) HCV IgG Negative NEG BT MAIN-STATION 3 HBsAg Negative NEG BT MAIN-STATION 3 HAV, IgM Negative NEG BT MAIN-STATION 3 HBcAb, IgM Negative NEG BT MAIN-STATION 3 Specimen Blood Performing Organization Address [facility] Phone Number MISYS BT MAIN-STATION 3 * VIT D, 25-HYDROXY (07/22/2018 3:40 PM BROKERAGE COORDINATOR) Vit D, 19.7 (L) 30 - 100 ng/mL BT DIAGNOSTIC 25-Hydroxy Comment: IMMUNOLOGY Vitamin D deficiency has been defined by the [place] of Medicine and Endocrine Society guideline as a level of serum 25-OH Vitamin D less than 20 ng/mL. The Endocrine Society further defines Vitamin D insufficiency as a level between 21 and 29 ng/mL and sufficiency as a level between 30 and 100 ng/mL. Specimen Performing Organization Address [facility] Phone Number MISYS DIAGNOSTIC IMMUNOLOGY * 24 HOUR HOLTER MONITOR (04/25/2018 10:01 AM CDT) 24 HOUR HOLTER SMS MONITOR [facility] Test Date:2018-04-25 Pat Name: GISELLE LANDAVERDE Department: Room: Gender: F Matrix Inspector: ASHLEY JOYCE :1960-1 0-09 Requested By: Order Number: Wan ramsay MD: Lexy Kessler M.D. Interpretive Statements PREDOMINANT RHYTHM: SINUS HR RANGE: 56-129 BPM LONGEST R-R INTERVAL: 1.2 SEC (4:34 AM) NO PACS NO PVCS NO ISCHEMIC CHANGES Electronically Signed On 04-27-18 14:28:49 CDT by Lexy Kesslre M.D. Specimen Performing Organization Address City/State/Zipcode Phone [...] 04/01/2018 9:05 AM Performing Organization Address [facility] Phone Number SMS * TSH (03/31/2018 8:13 AM CDT) TSH 1.47 0.57 - 3.74 uIU/mL BT MAIN-STATION 1 Specimen Blood Performing Organization Address [facility] Phone Number MISYS BT MAIN-STATION 1 * FREE T4 (03/31/2018 8:13 AM CDT) Free T4 0.69 0.61 - 1.18 ng/dl BT MAIN-STATION Comment: 1 females: 1st Trimester-0.52-1.10 ng/dL 2nd Trimester=0.45-0.99 ng/dL 3rd Trimester=0.48-0.95 ng/dL Specimen Blood Performing Organization Address City/State/Zipcode Phone Number MISYS BT MAIN-STATION 1 * 12 LEAD EKG (03/24/2018 3:54 PM CDT) 12 LEAD EKG FOR SMS [facility] Test Date:2018-03-24 Pat Name: GISELLE LANDAVERDE Department: Room: Gender: F Matrix Inspector: [id number] :1960-1 0-09 Requested By: Order Number: Wan ramsay MD: Hailey Flowers Measurements Intervals [place] Rate: 73 P:44 [place]: 145 QRS: 55 QRSD: 96 T:38 QT: 364 QTc:401 Interpretive Statements SINUS RHYTHM Electronically Signed On 03-24-18 17:37:01 CDT by Hailey Flowers Specimen Performing Organization Address City/[facility] Phone Number SMS * OCCULT BLOOD ICT (03/16/2018 11:56 AM CDT) Occult Blood Negative [facility]G [facility] ICT Specimen Stool Performing Organization Address City/[facility] Phone Number [facility] * MICROALBUM, URINE (03/08/2018 3:44 [...] week is recommended. Specimen Performing Organization Address City[facility] Phone Number [facility] BT MAIN-STATION 1 after 02/08/2018 Insurance Type Payer Benefit Subscriber ID Effective Phone Address Plan / Dates Group [employer] [place] xxxxxx 2018- [phone] [employer] [address]ILY 2019 [id number] PLANN[place], [place] [address] [employer] xxxxxx 2018- [phone] [id number] [place] [address]
--- OUTSIDE RECORDS SUMMARY | 2019-03-07 14:48 | XMS REPORT ---
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 Allergies, Adverse Reactions, Alerts This patient has no known allergies or adverse reactions. Medications This patient has no known medications. Encounters Start Date/Time End Date/Time Encounter Type Admission Type Attending [facility] Care Department Encounter ID 2019-05-12 00:00:00 2019-05-12 00:00:00 Outpatient [facility] [id number] 2019-05-10 00:00:00 2019-05-10 00:00:00 Outpatient [facility] [id number] 2019-03-21 00:00:00 2019-03-21 00:00:00 Outpatient [facility] [id number] 2019-03-13 00:00:00 2019-03-13 00:00:00 Outpatient [facility] [id number] 2019-03-10 00:00:00 2019-03-10 00:00:00 Outpatient [facility] [id number] 2019-03-10 00:00:00 2019-03-10 00:00:00 Outpatient [facility] [id number] 2019-03-02 07:45:10 2019-03-02 07:45:10 Outpatient [facility] [id number] 2019-02-24 00:00:00 2019-02-24 00:00:00 Outpatient [facility] [id number] 2019-02-24 00:00:00 2019-02-24 00:00:00 Outpatient [facility] [id number] 2019-02-22 08:46:11 2019-02-22 08:46:11 Outpatient [facility] [id number] 2019-02-13 11:19:37 2019-02-13 11:19:37 Outpatient [facility] [id number] 2019-02-13 09:00:46 2019-02-13 09:00:46 Outpatient [facility] [id number] 2019-02-13 00:00:00 2019-02-13 00:00:00 Outpatient [facility] [id number] 2019-02-09 09:56:47 2019-02-09 09:56:47 Outpatient [facility] [id number] 2019-02-09 00:00:00 2019-02-09 00:00:00 Outpatient [facility] [id number] 2019-01-05 08:11:13 2019-01-05 08:11:13 Outpatient [facility] [id number] 2018-12-22 07:51:49 2018-12-22 07:51:49 Outpatient [facility] [id number] 2018-12-22 00:00:00 2018-12-22 00:00:00 Outpatient [facility] [id number] 2018-11-24 08:13:59 2018-11-24 08:13:59 Outpatient [facility] [id number] 2018-11-14 00:00:00 2018-11-14 00:00:00 Outpatient [facility] [id number] 2018-11-14 00:00:00 2018-11-14 00:00:00 Outpatient [facility] [id number] 2018-11-04 08:56:39 2018-11-04 08:56:39 Outpatient [facility] [id number] 2018-10-31 08:31:26 2018-10-31 08:31:26 Outpatient [facility] [id number] 2018-10-13 00:00:00 2018-10-13 00:00:00 Outpatient [facility] [id number] 2018-10-07 09:38:31 2018-10-07 09:38:31 Outpatient [facility] [id number] 2018-10-04 14:25:00 2018-10-04 14:25:00 Outpatient [facility] [id number] 2018-10-04 00:00:00 2018-10-04 00:00:00 Outpatient [facility] [id number] 2018-09-30 08:29:50 2018-09-30 08:29:50 Outpatient [facility] [id number] 2018-09-30 08:03:03 2018-09-30 08:03:03 Outpatient [facility] [id number] 2018-09-29 00:00:00 2018-09-29 00:00:00 Outpatient [facility] [id number] 2018-09-05 08:28:44 2018-09-05 08:28:44 Outpatient [facility] [id number] 2018-09-05 08:24:51 2018-09-05 08:24:51 Outpatient [facility] [id number] 2018-08-05 00:00:00 2018-08-05 00:00:00 Outpatient [facility] [id number] 2018-08-04 00:00:00 2018-08-04 00:00:00 Outpatient [facility] [id number] 2018-08-04 00:00:00 2018-08-04 00:00:00 Outpatient [facility] [id number] 2018-08-03 00:00:00 2018-08-03 00:00:00 Outpatient [facility] [id number] 2018-07-22 00:00:00 2018-07-22 00:00:00 Outpatient [facility] [id number] 2018-06-15 07:44:45 2018-06-15 07:44:45 Outpatient [facility] [id number] 2018-06-10 11:18:25 2018-06-10 11:18:25 Outpatient [facility] [id number] 2018-06-10 10:36:40 2018-06-10 10:36:40 Outpatient [facility] [id number] 2018-06-10 09:52:07 2018-06-10 09:52:07 Outpatient [facility] [id number] 2018-05-19 13:19:23 2018-05-19 13:19:23 Outpatient [facility] [id number] 2018-05-16 00:00:00 2018-05-16 00:00:00 Outpatient [facility] [id number] 2018-05-12 00:00:00 2018-05-12 00:00:00 Outpatient [facility] [id number] 2018-05-11 07:47:04 2018-05-11 07:47:04 Outpatient [facility] [id number] 2018-05-09 00:00:00 2018-05-09 00:00:00 Outpatient [facility] [id number] 2018-04-25 09:54:56 2018-04-25 09:54:56 Outpatient [facility] [id number] 2018-04-01 06:56:21 2018-04-01 06:56:21 Outpatient [facility] [id number] 2018-03-31 08:23:37 2018-03-31 08:23:37 Outpatient [facility] [id number] 2018-03-31 08:13:36 2018-03-31 08:13:36 Outpatient [facility] [id number] 2018-03-25 00:00:00 2018-03-25 00:00:00 Outpatient [facility] [id number] 2018-03-25 00:00:00 2018-03-25 00:00:00 Outpatient [facility] [id number] 2018-03-24 14:57:01 2018-03-24 14:57:01 Outpatient [facility] [id number] 2018-03-16 07:43:47 2018-03-16 07:43:47 Outpatient [facility] [id number] 2018-03-13 00:00:00 2018-03-13 00:00:00 Outpatient [facility] [id number] 2018-03-08 15:45:37 2018-03-08 15:45:37 Outpatient [facility] [id number] 2018-03-07 00:00:00 2018-03-07 00:00:00 Outpatient [facility] [id number] 2018-02-25 15:22:22 2018-02-25 15:22:22 Outpatient [facility] [id number] 2018-02-24 15:02:44 2018-02-24 15:02:44 Outpatient [facility] [id number] 2018-02-15 16:26:47 2018-02-15 16:26:47 Outpatient [facility] [id number] 2018-02-14 07:50:07 2018-02-14 07:50:07 Outpatient [facility] [id number] 2018-01-17 08:08:59 2018-01-17 08:08:59 Outpatient [facility] [id number] 2017-12-02 00:00:00 2017-12-02 00:00:00 Outpatient [facility] [id number] 2017-11-24 11:44:21 2017-11-24 11:44:21 Outpatient [facility] [id number] 2017-11-24 10:07:35 2017-11-24 10:07:35 Outpatient [facility] [id number] 2017-11-22 08:37:25 2017-11-22 08:37:25 Outpatient [facility] [id number] 2017-11-15 14:16:19 2017-11-15 14:16:19 Outpatient [facility] [id number] 2017-11-15 13:53:04 2017-11-15 13:53:04 Outpatient [facility] [id number] 2017-11-01 08:57:17 2017-11-01 08:57:17 Outpatient [facility] [id number] 2017-10-20 08:27:43 2017-10-20 08:27:43 Outpatient [facility] [id number] 2017-10-20 00:00:00 2017-10-20 00:00:00 Outpatient [facility] [id number] 2017-10-19 08:38:11 2017-10-19 08:38:11 Outpatient [facility] [id number] 2017-10-04 12:53:45 2017-10-04 12:53:45 Outpatient [facility] [id number] 2017-09-16 15:51:19 2017-09-16 15:51:19 Outpatient [facility] [id number] 2017-09-14 10:16:22 2017-09-14 10:16:22 Outpatient [facility] [id number] 2017-09-09 11:43:29 2017-09-09 11:43:29 Outpatient [facility] [id number] 2017-08-25 08:35:08 2017-08-25 08:35:08 Outpatient [facility] [id number] 2017-08-19 00:00:00 2017-08-19 00:00:00 Outpatient [facility] [id number] 2017-08-18 13:59:48 2017-08-18 13:59:48 Outpatient [facility] [id number] 2017-08-18 13:34:50 2017-08-18 13:34:50 Outpatient [facility] [id number] 2017-08-16 15:21:36 2017-08-16 15:21:36 Outpatient [facility] [id number] 2017-08-05 00:00:00 2017-08-05 00:00:00 Outpatient [facility] [id number] 2017-07-12 11:31:20 2017-07-12 11:31:20 Outpatient [facility] [id number] 2017-07-12 10:25:47 2017-07-12 10:25:47 Outpatient [facility] [id number] 2017-07-08 00:00:00 2017-07-08 00:00:00 Outpatient [facility] [id number] 2017-07-05 00:00:00 2017-07-05 00:00:00 Outpatient [facility] [id number] 2017-06-24 14:30:57 2017-06-24 14:30:57 Outpatient [facility] [id number] 2017-06-10 15:09:53 2017-06-10 15:09:53 Outpatient [facility] [id number] 2017-05-20 15:02:41 2017-05-20 15:02:41 Outpatient [facility] [id number] 2017-05-10 13:31:32 2017-05-10 13:31:32 Outpatient [facility] [id number] 2017-05-10 13:03:03 2017-05-10 13:03:03 Outpatient [facility] [id number] 2017-05-06 08:51:39 2017-05-06 08:51:39 Outpatient [facility] [id number] 2017-05-06 08:28:53 2017-05-06 08:28:53 Outpatient [facility] [id number] 2017-05-06 00:00:00 2017-05-06 00:00:00 Outpatient [facility] [id number] 2017-04-20 00:00:00 2017-04-20 00:00:00 Outpatient [facility] [id number] 2017-04-15 08:01:57 2017-04-15 08:01:57 Outpatient [facility] [id number] 2017-04-06 13:13:31 2017-04-06 13:13:31 Outpatient [facility] [id number] 2017-04-01 15:33:30 2017-04-01 15:33:30 Outpatient [facility] [id number] 2017-03-18 00:00:00 2017-03-18 00:00:00 Outpatient [facility] [id number] 2017-03-16 13:17:48 2017-03-16 13:17:48 Outpatient [facility] [id number] 2017-02-17 00:00:00 2017-02-17 00:00:00 Outpatient [facility] [id number] 2017-02-12 13:53:23 2017-02-12 13:53:23 Outpatient [facility] [id number] 2017-02-01 08:44:06 2017-02-01 08:44:06 Outpatient [facility] [id number] 2016-12-24 10:32:23 2016-12-24 10:32:23 Outpatient [facility] [id number] 2016-12-10 14:32:58 2016-12-10 14:32:58 Outpatient [facility] [id number]
[2019-03-07] MEDS ORDERED: SODIUM CHLORIDE 0.9% 1000ML 1,000 ML ONE (14:58)
[2019-03-07] MEDS ORDERED: GLUCAGON FOR INJ 1 MG VIAL IV ONE (15:00)
[2019-03-07 15:20] LABS: BASOPHILS % 0.2 % (0.0-1.0); EOSINOPHILS # (AUTO) 0.2 (0.0-0.4); EOSINOPHILS % 2.5 % (0.0-6.0); HEMATOCRIT 36.4 % (34.2-44.1); HEMOGLOBIN 11.4 g/dL (12.0-16.0); LYMPHOCYTES # (AUTO) 3.7 (1.0-3.2); LYMPHOCYTES % 44.4 % (18.0-39.1); MEAN CORPUSCULAR HEMOGLOBIN 27.2 pg (28-32); MEAN CORPUSCULAR HGB CONC 31.3 g/dL (31-35); MEAN CORPUSCULAR VOLUME 86.9 fL (81-99); MONOCYTES # (AUTO) 0.4 (0.2-0.8); MONOCYTES % 4.8 % (4.4-11.3); NEUTROPHILS % 47.6 % (38.7-80.0); PLATELET COUNT 253 x10e3/uL (140-360); RED BLOOD COUNT 4.19 x10e6/uL (3.6-5.1); RED CELL DISTRIBUTION WIDTH 14.7 % (11.7-14.4)
[2019-03-07 15:34] LABS: AMPHETAMINES SCREEN,URINE POSITIVE (NEGATIVE); BENZODIAZEPINES SCREEN,URINE NEGATIVE (NEGATIVE); PHENCYCLIDINE SCREEN,URINE NEGATIVE (NEGATIVE)
[2019-03-07 15:39] LABS: ALBUMIN 3.6 g/dL (3.5-5.0); ANION GAP 16.1 mmol/L (8-16); CALCIUM 9.5 mg/dL (8.4-10.2); CREATININE, SERUM 1.01 mg/dL (0.57-1.11); POTASSIUM 4.1 mmol/L (3.5-5.1)
--- NOTE | 2019-03-07 15:58 | Diagnostic Imaging Report ---
CT BRAIN WO HISTORY: Left arm numbness COMPARISON: None. TECHNIQUE: Noncontrast axial scans were obtained from skull base to the vertex. Coronal and sagittal reconstructions obtained from the axial data. One or more of the following dose reduction techniques were used: Automated exposure control, adjustment of the mA and/or kV according to patient size, and/or utilization of iterative reconstruction technique. DISCUSSION: Scalp/Skull: Unremarkable. Brain sulci: Appropriate for patient's age. Ventricles: Normal in size and configuration. No hydrocephalus. Extra-axial spaces: No masses or fluid collections. Parenchyma: Mild carotid siphon calcifications are present. No mass, hemorrhage, or large vascular territory acute infarct. Dural sinuses: No abnormal densities. Sellar/Suprasellar region: Intact. Skull base: Intact. Incidental findings: Mild left sphenoid sinus mucosal thickening. IMPRESSION: No acute intracranial abnormalities. Signed by: Dr. Gelacio Ng M.D. on 03/07/2019 3:55 PM
[2019-03-07] MEDS ORDERED: TOPROL XL25 MG PO (16:00)
[2019-03-07] MEDS ORDERED: LISINOPRIL10 MG PO (16:00)
[2019-03-07] MEDS ORDERED: METFORMIN HCL500 M2 PO (16:00)
[2019-03-07] MEDS ORDERED: AMITRIPTYLINE H75 MG PO (16:00)
[2019-03-07] MEDS ORDERED: GABAPENTIN400 MG PO (16:00)
[2019-03-07] MEDS ORDERED: CYMBALTA30 MG PO (16:00)
[2019-03-07] MEDS ORDERED: GLIMEPIRIDE2 MG PO (16:00)
--- NOTE | 2019-03-07 16:34 | Diagnostic Imaging Report ---
EXAMINATION: CHEST 2 VIEWS INDICATION: Palpitations COMPARISON: Chest radiograph of 08/11/2008 FINDINGS: LINES/TUBES:None LUNGS:The lungs are well-inflated. No focal consolidation or pulmonary edema. PLEURA:No pleural effusion or pneumothorax. MEDIASTINUM:The cardiomediastinal silhouette appears normal in size and shape. BONES/SOFT TISSUES:No acute osseous injury. ABDOMEN:No free air under the diaphragm. Status post cholecystectomy. IMPRESSION: No focal pneumonia or pulmonary edema. Signed by: Jessica Greenberg MD on 03/07/2019 4:31 PM
[2019-03-07 17:04] VITALS: BP 111/54
== END 2019-03-07 17:06 | disposition home or self-care (01) ==
LOC: ER 14:41
DX: R42 Dizziness and giddiness (principal); R00.2 Palpitations; I95.2 Hypotension due to drugs
CPT/HCPCS: 36415; 70450; 71046; 80053; 80307; 84484; 85025; 93005; 99284; J1610; J7030